=== PATIENT | female | born 1950 | race Caucasian/White ===

== ENCOUNTER 2020-07-05 16:17 | Inpatient (IN) | payer BC ==
[2020-07-05] MEDS ORDERED: SODIUM CHLORIDE 0.9% 500 ML INFUS.BAG IV ONE (17:28)
[2020-07-05] MEDS ORDERED: CEFTRIAXONE 2,000 MG in DEXTROSE 5%-WATER - 50 ML IVPB ONE (17:31)
[2020-07-05] MEDS ORDERED: VANCOMYCIN 1 GM in D5W (PRE-DOCKED) 1,000 MG/250 ML IVPB ONE (18:12)
[2020-07-05 18:29] LABS: BASO % 0.7 % (0-2.0); EOS % 0.3 % (0-4.5); HEMATOCRIT 33.5 % (32.4-45.2); HEMOGLOBIN 11.4 GM/dL (10.7-15.3); LYMPH % 8.5 % (8-40); MCH 29.2 pg (25.7-33.7); MEAN CELL VOLUME 85.9 fl (80-96); MEAN PLT VOLUME 7.9 fl (7.5-11.1); MONO % 4.1 % (3.8-10.2); NEUT % 86.4 % (42.8-82.8); PLATELET COUNT 294 K/MM3 (134-434); RBC 3.89 M/mm3 (3.60-5.2); RDW 14.3 % (11.6-15.6); WHITE BLOOD COUNT 13.3 K/mm3 (4.0-10.0)
[2020-07-05 18:45] LABS: INR 1.14 (0.83-1.09)
[2020-07-05 18:47] LABS: ACTIVATED PTT 27.2 SECONDS (25.2-36.5)
[2020-07-05 18:58] LABS: CALCIUM 8.6 mg/dL (8.5-10.1)
[2020-07-05 19:00] LABS: ALBUMIN 2.4 g/dl (3.4-5.0); BLOOD UREA NITROGEN 11.5 mg/dL (7-18); MAGNESIUM 1.2 mg/dL (1.8-2.4)
[2020-07-05 19:03] LABS: CREATININE 0.5 mg/dL (0.55-1.3)
[2020-07-05 19:05] LABS: BILIRUBIN,TOTAL 0.3 mg/dL (0.2-1); TOT PROT 6.6 g/dl (6.4-8.2)
[2020-07-05 19:37] LABS: ERYTHROCYTE SEDIMENTATION RATE 95 mm/hr (0-30)
[2020-07-05] MEDS ORDERED: MAGNESIUM OXIDE 400 MG TABLET (FP) PO ONE (19:52)
[2020-07-05] MEDS ORDERED: MAGNESIUM OXIDE 400 MG TABLET (FP) ONE (20:56)
[2020-07-06] MEDS ORDERED: ACETAMINOPHEN 1000 MG/100 ML VIAL (NON FORMULARY) IVPB ONE ×2 (02:32→19:15)
[2020-07-06] MEDS: INSULIN SLIDING SCALE (NOVOLOG) 1 VIAL SQ SCH ×5 (07:00→21:57)
[2020-07-06 09:07] LABS: BASO % 0.7 % (0-2.0); EOS % 0.9 % (0-4.5); HEMATOCRIT 31.2 % (32.4-45.2); HEMOGLOBIN 10.8 GM/dL (10.7-15.3); LYMPH % 10.3 % (8-40); MCH 29.3 pg (25.7-33.7); MCHC 34.6 g/dl (32.0-36.0); MEAN CELL VOLUME 84.7 fl (80-96); MEAN PLT VOLUME 7.7 fl (7.5-11.1); MONO % 4.2 % (3.8-10.2); NEUT % 83.9 % (42.8-82.8); PLATELET COUNT 272 K/MM3 (134-434); RBC 3.68 M/mm3 (3.60-5.2); WHITE BLOOD COUNT 10.2 K/mm3 (4.0-10.0)
[2020-07-06 09:48] LABS: CALCIUM 8.1 mg/dL (8.5-10.1)
[2020-07-06 09:50] LABS: ANISOCYTOSIS 0; BLOOD UREA NITROGEN 7.9 mg/dL (7-18); HELMET CELLS 0; HOWELL-JOLLY BODIES 0; MACROCYTOSIS 0; MAGNESIUM 1.4 mg/dL (1.8-2.4); OVALOCYTE 0; PLATELET ESTIMATE NORMAL; ROULEAU 0; SICKELED CELLS 0; TARGET CELLS 0; TEAR DROP CELLS 0; TOXIC GRANULATION 0
[2020-07-06 09:53] LABS: CREATININE 0.4 mg/dL (0.55-1.3)
[2020-07-06] MEDS ORDERED: VANCOMYCIN/WATER 1,250 MG/250 ML BAG IVPB SCH (10:00)
[2020-07-06] MEDS ORDERED: POTASSIUM CHLORIDE TABS 20 MEQ TABLET.ER (FP) PO ONE (10:26)
[2020-07-06] MEDS: amLODIPine BESYLATE 5 MG TABLET (FP) PO SCH (10:59)
[2020-07-06] MEDS: LISINOPRIL 20 MG TABLET PO SCH (10:59)
[2020-07-06] MEDS ORDERED: MAGNESIUM SULF 50% (8.12 MEQ/2 ML-1 GM VIAL) IVPB ONE (13:00)
[2020-07-06] MEDS ORDERED: VANCOMYCIN/WATER BAGS 1,250 MG/250 ML BAG IVPB SCH ×2 (14:00→22:00)
[2020-07-06] MEDS: VANCOMYCIN/WATER 1,250 MG/250 ML BAG IVPB SCH ×2 (14:57→14:58)
[2020-07-06] MEDS: CEFEPIME 2 GM in DEXTROSE 5%-WATER 2 GM/100 ML BAG IVPB SCH ×2 (15:18→17:38)
[2020-07-06] MEDS: CLINDAMYCIN 600MG PREMIX IVPB 600 MG/50 ML BAG IVPB SCH ×2 (16:04→17:38)
[2020-07-06] MEDS: metFORMIN HCL 500 MG TABLET (FP) PO SCH (16:17)
[2020-07-06] MEDS ORDERED: PT OWN MED DRAWER 7, Y5N ONE (18:45)
[2020-07-07] MEDS: VANCOMYCIN/WATER BAGS 1,250 MG/250 ML BAG IVPB SCH ×3 (00:41→23:41)
[2020-07-07] MEDS: CLINDAMYCIN 600MG PREMIX IVPB 600 MG/50 ML BAG IVPB SCH ×3 (02:25→17:00)
[2020-07-07] MEDS: CEFEPIME 2 GM in DEXTROSE 5%-WATER 2 GM/100 ML BAG IVPB SCH ×3 (02:26→18:05)
[2020-07-07] MEDS: metFORMIN HCL 500 MG TABLET (FP) PO SCH ×2 (06:30→16:59)
[2020-07-07] MEDS: INSULIN SLIDING SCALE (NOVOLOG) 1 VIAL SQ SCH ×4 (06:31→22:08)
[2020-07-07] MEDS ORDERED: INSULIN (NOVOLOG) ASPART 100 UNITS/ML 10ML VIAL ONE (06:37)
[2020-07-07] MEDS ORDERED: sitaGLIPtin PHOSPHATE 50 MG TABLET PO SCH (07:00)
[2020-07-07 07:40] LABS: BASO % 0.5 % (0-2.0); EOS % 0.8 % (0-4.5); HEMOGLOBIN 11.2 GM/dL (10.7-15.3); LYMPH % 6.9 % (8-40); MCH 29.1 pg (25.7-33.7); MEAN CELL VOLUME 85.6 fl (80-96); MEAN PLT VOLUME 7.5 fl (7.5-11.1); MONO % 3.5 % (3.8-10.2); NEUT % 88.3 % (42.8-82.8); PLATELET COUNT 290 K/MM3 (134-434); RBC 3.86 M/mm3 (3.60-5.2); RDW 13.9 % (11.6-15.6)
[2020-07-07 08:01] LABS: CALCIUM 7.6 mg/dL (8.5-10.1)
[2020-07-07 08:02] LABS: BLOOD UREA NITROGEN 7.7 mg/dL (7-18); MAGNESIUM 1.6 mg/dL (1.8-2.4)
[2020-07-07 08:05] LABS: CREATININE 0.4 mg/dL (0.55-1.3)
[2020-07-07] MEDS ORDERED: PT OWN MED DRAWER 7, Y5N ONE ×3 (09:54→23:38)
[2020-07-07] MEDS: amLODIPine BESYLATE 5 MG TABLET (FP) PO SCH (10:10)
[2020-07-07] MEDS: LISINOPRIL 20 MG TABLET PO SCH (10:10)
[2020-07-07] MEDS: OXYBUTYNIN CHLORIDE 5 MG TABLET PO SCH (10:10)
[2020-07-07] MEDS: oxyCODONE HCL 5 MG TABLET PO PRN ×2 (11:58→20:06)
[2020-07-07] MEDS: NYSTATIN 100,000 UNIT/GM TOPICAL CREAM 15 GM TUBE TP SCH ×2 (13:02→22:08)
[2020-07-07] MEDS ORDERED: MAGNESIUM SULF 50% (8.12 MEQ/2 ML-1 GM VIAL) IVPB ONE (14:15)
[2020-07-07] MEDS ORDERED: LIDOCAINE HCL 2% (20ML MULTI-DOSE VIAL) INF ONE (16:33)
[2020-07-07] MEDS: AMINO ACIDS/PROTEIN HYDROLYS 30 ML LIQUID.PKT PO SCH (17:00)
[2020-07-08] MEDS ORDERED: PT OWN MED DRAWER 7, Y5N ONE ×3 (01:57→18:20)
[2020-07-08] MEDS: CEFEPIME 2 GM in DEXTROSE 5%-WATER 2 GM/100 ML BAG IVPB SCH ×3 (02:00→18:24)
[2020-07-08] MEDS: CLINDAMYCIN 600MG PREMIX IVPB 600 MG/50 ML BAG IVPB SCH ×3 (03:04→17:55)
[2020-07-08] MEDS: metFORMIN HCL 500 MG TABLET (FP) PO SCH ×2 (07:04→18:16)
[2020-07-08] MEDS: INSULIN SLIDING SCALE (NOVOLOG) 1 VIAL SQ SCH ×4 (07:05→21:27)
[2020-07-08] MEDS: AMINO ACIDS/PROTEIN HYDROLYS 30 ML LIQUID.PKT PO SCH ×2 (08:09→17:55)
[2020-07-08 09:07] LABS: BASO % 0.6 % (0-2.0); EOS % 0.5 % (0-4.5); HEMATOCRIT 32.3 % (32.4-45.2); LYMPH % 6.5 % (8-40); MCH 29.3 pg (25.7-33.7); MCHC 34.2 g/dl (32.0-36.0); MEAN CELL VOLUME 85.7 fl (80-96); MEAN PLT VOLUME 7.7 fl (7.5-11.1); MONO % 4.2 % (3.8-10.2); NEUT % 88.2 % (42.8-82.8); PLATELET COUNT 322 K/MM3 (134-434); RBC 3.77 M/mm3 (3.60-5.2); RDW 14.2 % (11.6-15.6); WHITE BLOOD COUNT 14.4 K/mm3 (4.0-10.0)
[2020-07-08 09:34] LABS: CALCIUM 7.5 mg/dL (8.5-10.1)
[2020-07-08 09:35] LABS: BLOOD UREA NITROGEN 9.5 mg/dL (7-18)
[2020-07-08 09:37] LABS: CREATININE 0.5 mg/dL (0.55-1.3)
[2020-07-08 09:39] LABS: BILIRUBIN,TOTAL 0.6 mg/dL (0.2-1); TOT PROT 6.2 g/dl (6.4-8.2)
[2020-07-08] MEDS: oxyCODONE HCL 5 MG TABLET PO PRN (09:42)
[2020-07-08] MEDS: LISINOPRIL 20 MG TABLET PO SCH (09:42)
[2020-07-08] MEDS: OXYBUTYNIN CHLORIDE 5 MG TABLET PO SCH (09:43)
[2020-07-08] MEDS: NYSTATIN 100,000 UNIT/GM TOPICAL CREAM 15 GM TUBE TP SCH ×2 (09:43→21:27)
[2020-07-08] MEDS ORDERED: amLODIPine BESYLATE 10 MG TABLET (FP) PO SCH (10:00)
[2020-07-08] MEDS ORDERED: SODIUM HYPOCHLORITE 0.25%- 473 ML BULK BOTTLE TP SCH (10:00)
[2020-07-08] MEDS ORDERED: MULTIVITAMINS THER W-MINERALS COMBO TABLET (FP) PO SCH (10:00)
[2020-07-08] MEDS ORDERED: METOPROLOL TARTRATE 25 MG TABLET (FP) PO SCH (11:45)
[2020-07-08] MEDS: VANCOMYCIN/WATER BAGS 1,250 MG/250 ML BAG IVPB SCH (13:06)
[2020-07-08] MEDS ORDERED: PROMETHAZINE HCL 25 MG/1 ML VIAL IVPUSH PRN ×2 (16:01→17:21)
[2020-07-08] MEDS ORDERED: ONDANSETRON 4 MG/2 ML VIAL IVPUSH PRN ×2 (16:01→17:21)
[2020-07-08] MEDS ORDERED: LACTATED RINGERS SOLUTION 1,000 ML IV SCH (16:15)
[2020-07-08] MEDS ORDERED: PROPOFOL 20 ML ONE (16:15)
[2020-07-08] MEDS ORDERED: MIDAZOLAM HCL 2 MG/2 ML SINGLE DOSE VIAL ONE (16:15)
[2020-07-08] MEDS ORDERED: LIDOCAINE HCL 1%, 10 MG/ML (20ML VIAL) ONE (16:19)
[2020-07-08] MEDS ORDERED: LIDOCAINE HCL 1%, 10 MG/ML (20ML VIAL) INF ONE (16:30)
[2020-07-08] MEDS ORDERED: BACITRACIN 50,000 UNITS VIAL TP ONE (16:45)
[2020-07-08] MEDS ORDERED: LIDOCAINE HCL 2% (20ML MULTI-DOSE VIAL) INF ONE (17:21)
[2020-07-08] MEDS: LACTATED RINGERS SOLUTION 1,000 ML IV SCH (17:55)
[2020-07-08] MEDS ORDERED: INSULIN (NOVOLOG) ASPART 100 UNITS/ML 10ML VIAL SQ ONE (18:03)
[2020-07-08] MEDS: ACETAMINOPHEN 1000 MG/100 ML VIAL (NON FORMULARY) IVPB PRN (18:21)
[2020-07-08] MEDS ORDERED: INSULIN (NOVOLOG) ASPART 100 UNITS/ML 10ML VIAL ONE (21:21)
[2020-07-08] MEDS: METOPROLOL TARTRATE 25 MG TABLET (FP) PO SCH (21:22)
[2020-07-09] MEDS: VANCOMYCIN/WATER BAGS 1,250 MG/250 ML BAG IVPB SCH ×2 (00:48→12:18)
[2020-07-09] MEDS: CLINDAMYCIN 600MG PREMIX IVPB 600 MG/50 ML BAG IVPB SCH ×3 (01:48→17:40)
[2020-07-09] MEDS: CEFEPIME 2 GM in DEXTROSE 5%-WATER 2 GM/100 ML BAG IVPB SCH ×3 (03:05→17:40)
[2020-07-09] MEDS: metFORMIN HCL 500 MG TABLET (FP) PO SCH ×2 (06:06→17:42)
[2020-07-09] MEDS: INSULIN SLIDING SCALE (NOVOLOG) 1 VIAL SQ SCH ×4 (06:11→21:44)
[2020-07-09] MEDS: ACETAMINOPHEN 1000 MG/100 ML VIAL (NON FORMULARY) IVPB PRN (06:21)
[2020-07-09 09:24] LABS: HEMOGLOBIN 10.6 GM/dL (10.7-15.3); MCH 28.9 pg (25.7-33.7); MCHC 34.3 g/dl (32.0-36.0); MEAN CELL VOLUME 84.3 fl (80-96); MEAN PLT VOLUME 7.7 fl (7.5-11.1); PLATELET COUNT 349 K/MM3 (134-434); RBC 3.68 M/mm3 (3.60-5.2); RDW 14.1 % (11.6-15.6); WHITE BLOOD COUNT 13.2 K/mm3 (4.0-10.0)
[2020-07-09] MEDS ORDERED: ENOXAPARIN NA (PORCINE) 40 MG/0.4 ML DISP.SYRIN SQ SCH (10:00)
[2020-07-09] MEDS: AMINO ACIDS/PROTEIN HYDROLYS 30 ML LIQUID.PKT PO SCH ×2 (10:01→17:42)
[2020-07-09] MEDS: SODIUM HYPOCHLORITE 0.25%- 473 ML BULK BOTTLE TP SCH (10:02)
[2020-07-09] MEDS: OXYBUTYNIN CHLORIDE 5 MG TABLET PO SCH (10:03)
[2020-07-09] MEDS: ENOXAPARIN NA (PORCINE) 40 MG/0.4 ML DISP.SYRIN SQ SCH (10:03)
[2020-07-09] MEDS: METOPROLOL TARTRATE 25 MG TABLET (FP) PO SCH ×2 (10:03→21:45)
[2020-07-09 10:05] LABS: BLOOD UREA NITROGEN 9.1 mg/dL (7-18); CALCIUM 8.1 mg/dL (8.5-10.1)
[2020-07-09] MEDS: NYSTATIN 100,000 UNIT/GM TOPICAL CREAM 15 GM TUBE TP SCH ×2 (10:05→21:49)
[2020-07-09] MEDS: LISINOPRIL 20 MG TABLET PO SCH (10:06)
[2020-07-09] MEDS: amLODIPine BESYLATE 10 MG TABLET (FP) PO SCH (10:06)
[2020-07-09] MEDS: MULTIVITAMINS THER W-MINERALS COMBO TABLET (FP) PO SCH (10:06)
[2020-07-09 10:09] LABS: CREATININE 0.4 mg/dL (0.55-1.3)
[2020-07-09] MEDS ORDERED: POTASSIUM CHLORIDE TABS 20 MEQ TABLET.ER (FP) PO ONE (10:38)
[2020-07-09] MEDS ORDERED: INSULIN (NOVOLOG) ASPART 100 UNITS/ML 10ML VIAL ONE ×2 (11:03→21:32)
[2020-07-09] MEDS ORDERED: PT OWN MED DRAWER 7, Y5N ONE (17:38)
[2020-07-09] MEDS: LACTATED RINGERS SOLUTION 1,000 ML IV SCH (17:49)
[2020-07-09] MEDS: oxyCODONE HCL 5 MG TABLET PO PRN (17:54)
[2020-07-09] MEDS ORDERED: INSULIN (LEVEMIR) 100 UNITS/ML UNITS SQ SCH (22:00)
[2020-07-10] MEDS: LACTATED RINGERS SOLUTION 1,000 ML IV SCH ×2 (00:24→17:42)
[2020-07-10] MEDS: VANCOMYCIN/WATER BAGS 1,250 MG/250 ML BAG IVPB SCH ×3 (00:35→23:32)
[2020-07-10] MEDS: CEFEPIME 2 GM in DEXTROSE 5%-WATER 2 GM/100 ML BAG IVPB SCH ×3 (01:44→18:45)
[2020-07-10] MEDS: CLINDAMYCIN 600MG PREMIX IVPB 600 MG/50 ML BAG IVPB SCH ×3 (03:18→17:55)
[2020-07-10] MEDS: metFORMIN HCL 500 MG TABLET (FP) PO SCH ×2 (06:03→17:07)
[2020-07-10] MEDS: INSULIN SLIDING SCALE (NOVOLOG) 1 VIAL SQ SCH ×4 (06:11→22:13)
[2020-07-10] MEDS: AMINO ACIDS/PROTEIN HYDROLYS 30 ML LIQUID.PKT PO SCH ×2 (08:24→17:07)
[2020-07-10 09:55] LABS: HEMATOCRIT 31.6 % (32.4-45.2); HEMOGLOBIN 10.6 GM/dL (10.7-15.3); MCH 28.8 pg (25.7-33.7); MCHC 33.6 g/dl (32.0-36.0); MEAN CELL VOLUME 85.7 fl (80-96); MEAN PLT VOLUME 7.9 fl (7.5-11.1); PLATELET COUNT 380 K/MM3 (134-434); RBC 3.69 M/mm3 (3.60-5.2); RDW 14.2 % (11.6-15.6); WHITE BLOOD COUNT 12.4 K/mm3 (4.0-10.0)
[2020-07-10 10:08] LABS: BLOOD UREA NITROGEN 12.6 mg/dL (7-18)
[2020-07-10 10:12] LABS: CREATININE 0.5 mg/dL (0.55-1.3)
[2020-07-10] MEDS ORDERED: PT OWN MED DRAWER 7, Y5N ONE ×3 (10:15→23:30)
[2020-07-10] MEDS: ENOXAPARIN NA (PORCINE) 40 MG/0.4 ML DISP.SYRIN SQ SCH (10:19)
[2020-07-10] MEDS: SODIUM HYPOCHLORITE 0.25%- 473 ML BULK BOTTLE TP SCH (10:22)
[2020-07-10] MEDS: OXYBUTYNIN CHLORIDE 5 MG TABLET PO SCH (10:23)
[2020-07-10] MEDS: METOPROLOL TARTRATE 25 MG TABLET (FP) PO SCH ×2 (10:23→22:08)
[2020-07-10] MEDS: LISINOPRIL 20 MG TABLET PO SCH (10:23)
[2020-07-10] MEDS: amLODIPine BESYLATE 10 MG TABLET (FP) PO SCH (10:23)
[2020-07-10] MEDS: MULTIVITAMINS THER W-MINERALS COMBO TABLET (FP) PO SCH (10:23)
[2020-07-10] MEDS: NYSTATIN 100,000 UNIT/GM TOPICAL CREAM 15 GM TUBE TP SCH ×2 (10:24→22:09)
[2020-07-10] MEDS: oxyCODONE HCL 5 MG TABLET PO PRN (22:08)
[2020-07-10] MEDS: INSULIN (LEVEMIR) 100 UNITS/ML UNITS SQ SCH (22:12)
[2020-07-11] MEDS ORDERED: PT OWN MED DRAWER 7, Y5N ONE ×5 (01:05→17:03)
[2020-07-11] MEDS ORDERED: ACETAMINOPHEN 1000 MG/100 ML VIAL (NON FORMULARY) IVPB ONE (01:25)
[2020-07-11 02:30] LABS: BASO % 0.7 % (0-2.0); EOS % 1.1 % (0-4.5); HEMATOCRIT 33.3 % (32.4-45.2); HEMOGLOBIN 11.1 GM/dL (10.7-15.3); LYMPH % 8.7 % (8-40); MCH 28.6 pg (25.7-33.7); MCHC 33.5 g/dl (32.0-36.0); MEAN CELL VOLUME 85.4 fl (80-96); MEAN PLT VOLUME 8.1 fl (7.5-11.1); MONO % 5.7 % (3.8-10.2); NEUT % 83.8 % (42.8-82.8); PLATELET COUNT 400 K/MM3 (134-434); RDW 14.3 % (11.6-15.6); WHITE BLOOD COUNT 12.9 K/mm3 (4.0-10.0)
[2020-07-11 02:32] LABS: EPI CELLS 23 /uL (0-25.1); HYALINE CASTS 1 /uL (0-3.1); URINE APPEARANCE CLOUDY; URINE BACTERIA 115 /uL (0-1359); URINE BILIRUBIN NEGATIVE (NEGATIVE); URINE COLOR YELLOW; URINE GLUCOSE (UA) 3+ (NEGATIVE); URINE KETONE TRACE (NEGATIVE); URINE LEUK ESTERASE 2+ (NEGATIVE); URINE NITRITE NEGATIVE (NEGATIVE); URINE PROTEIN 1+ (NEGATIVE); URINE UROBILINOGEN 0.2 mg/dL (0.2-1.0); URINE WBC 398 /uL (0-25.8)
[2020-07-11] MEDS: CEFEPIME 2 GM in DEXTROSE 5%-WATER 2 GM/100 ML BAG IVPB SCH ×2 (02:34→09:50)
[2020-07-11 02:54] LABS: CALCIUM 8.4 mg/dL (8.5-10.1)
[2020-07-11 02:57] LABS: CREATININE 0.5 mg/dL (0.55-1.3)
[2020-07-11] MEDS: INSULIN SLIDING SCALE (NOVOLOG) 1 VIAL SQ SCH ×4 (06:23→21:29)
[2020-07-11] MEDS: metFORMIN HCL 500 MG TABLET (FP) PO SCH ×2 (06:23→17:05)
[2020-07-11] MEDS: oxyCODONE HCL 5 MG TABLET PO PRN (06:24)
[2020-07-11] MEDS: AMINO ACIDS/PROTEIN HYDROLYS 30 ML LIQUID.PKT PO SCH ×2 (08:58→17:05)
[2020-07-11] MEDS: LISINOPRIL 20 MG TABLET PO SCH (09:51)
[2020-07-11] MEDS: amLODIPine BESYLATE 10 MG TABLET (FP) PO SCH (09:51)
[2020-07-11] MEDS: ENOXAPARIN NA (PORCINE) 40 MG/0.4 ML DISP.SYRIN SQ SCH (09:51)
[2020-07-11] MEDS: SODIUM HYPOCHLORITE 0.25%- 473 ML BULK BOTTLE TP SCH (09:52)
[2020-07-11] MEDS: METOPROLOL TARTRATE 25 MG TABLET (FP) PO SCH ×2 (09:52→21:27)
[2020-07-11] MEDS: MULTIVITAMINS THER W-MINERALS COMBO TABLET (FP) PO SCH (09:53)
[2020-07-11] MEDS: NYSTATIN 100,000 UNIT/GM TOPICAL CREAM 15 GM TUBE TP SCH ×2 (09:53→21:30)
[2020-07-11] MEDS ORDERED: INSULIN (NOVOLOG) ASPART 100 UNITS/ML 10ML VIAL ONE (09:59)
[2020-07-11] MEDS: OXYBUTYNIN CHLORIDE 5 MG TABLET PO SCH (10:00)
[2020-07-11] MEDS: VANCOMYCIN/WATER BAGS 1,250 MG/250 ML BAG IVPB SCH (11:54)
[2020-07-11] MEDS: CEFAZOLIN 2 GM/D5W 2 GM/50 ML ML IVPB SCH (17:53)
[2020-07-11] MEDS ORDERED: ACETAMINOPHEN 325 MG TABLET (FP) PO PRN (18:28)
[2020-07-11] MEDS: INSULIN (LEVEMIR) 100 UNITS/ML UNITS SQ SCH (21:28)
[2020-07-12] MEDS: CEFAZOLIN 2 GM/D5W 2 GM/50 ML ML IVPB SCH ×3 (01:32→17:16)
[2020-07-12] MEDS: metFORMIN HCL 500 MG TABLET (FP) PO SCH ×2 (06:50→17:16)
[2020-07-12] MEDS: INSULIN SLIDING SCALE (NOVOLOG) 1 VIAL SQ SCH ×4 (06:50→21:54)
[2020-07-12] MEDS: AMINO ACIDS/PROTEIN HYDROLYS 30 ML LIQUID.PKT PO SCH ×2 (09:02→17:16)
[2020-07-12] MEDS ORDERED: PT OWN MED DRAWER 7, Y5N ONE (10:32)
[2020-07-12] MEDS: OXYBUTYNIN CHLORIDE 5 MG TABLET PO SCH (10:41)
[2020-07-12] MEDS: amLODIPine BESYLATE 10 MG TABLET (FP) PO SCH (10:41)
[2020-07-12] MEDS: METOPROLOL TARTRATE 25 MG TABLET (FP) PO SCH ×2 (10:41→21:51)
[2020-07-12] MEDS: NYSTATIN 100,000 UNIT/GM TOPICAL CREAM 15 GM TUBE TP SCH ×2 (10:42→21:51)
[2020-07-12] MEDS: LISINOPRIL 20 MG TABLET PO SCH (10:42)
[2020-07-12] MEDS: ENOXAPARIN NA (PORCINE) 40 MG/0.4 ML DISP.SYRIN SQ SCH (10:42)
[2020-07-12] MEDS: MULTIVITAMINS THER W-MINERALS COMBO TABLET (FP) PO SCH (10:42)
[2020-07-12 12:50] VITALS: BMI 31.8
[2020-07-12] MEDS: SODIUM HYPOCHLORITE 0.25%- 473 ML BULK BOTTLE TP SCH (14:17)
[2020-07-12] MEDS: INSULIN (LEVEMIR) 100 UNITS/ML UNITS SQ SCH (21:50)
[2020-07-12] MEDS: oxyCODONE HCL 5 MG TABLET PO PRN (22:17)
[2020-07-13] MEDS: CEFAZOLIN 2 GM/D5W 2 GM/50 ML ML IVPB SCH ×3 (02:25→17:14)
[2020-07-13] MEDS: INSULIN SLIDING SCALE (NOVOLOG) 1 VIAL SQ SCH ×4 (06:03→22:34)
[2020-07-13] MEDS: metFORMIN HCL 500 MG TABLET (FP) PO SCH ×2 (06:03→17:14)
[2020-07-13] MEDS: oxyCODONE HCL 5 MG TABLET PO PRN (10:00)
[2020-07-13] MEDS: AMINO ACIDS/PROTEIN HYDROLYS 30 ML LIQUID.PKT PO SCH ×2 (10:00→17:14)
[2020-07-13] MEDS: amLODIPine BESYLATE 10 MG TABLET (FP) PO SCH (10:01)
[2020-07-13] MEDS: LISINOPRIL 20 MG TABLET PO SCH (10:01)
[2020-07-13] MEDS: SODIUM HYPOCHLORITE 0.25%- 473 ML BULK BOTTLE TP SCH (10:01)
[2020-07-13] MEDS: MULTIVITAMINS THER W-MINERALS COMBO TABLET (FP) PO SCH (10:02)
[2020-07-13] MEDS: METOPROLOL TARTRATE 25 MG TABLET (FP) PO SCH ×2 (10:02→22:34)
[2020-07-13] MEDS: OXYBUTYNIN CHLORIDE 5 MG TABLET PO SCH (10:04)
[2020-07-13] MEDS ORDERED: PT OWN MED DRAWER 7, Y5N ONE (10:04)
[2020-07-13] MEDS: ENOXAPARIN NA (PORCINE) 40 MG/0.4 ML DISP.SYRIN SQ SCH (10:08)
[2020-07-13] MEDS: NYSTATIN 100,000 UNIT/GM TOPICAL CREAM 15 GM TUBE TP SCH ×2 (10:18→22:34)
[2020-07-13] MEDS ORDERED: INSULIN (NOVOLOG) ASPART 100 UNITS/ML 10ML VIAL ONE ×2 (11:44→17:08)
[2020-07-13] MEDS: INSULIN (LEVEMIR) 100 UNITS/ML UNITS SQ SCH (22:33)
[2020-07-14] MEDS: CEFAZOLIN 2 GM/D5W 2 GM/50 ML ML IVPB SCH ×3 (02:25→17:52)
[2020-07-14] MEDS: metFORMIN HCL 500 MG TABLET (FP) PO SCH ×2 (06:13→17:52)
[2020-07-14] MEDS: INSULIN SLIDING SCALE (NOVOLOG) 1 VIAL SQ SCH ×4 (06:13→22:42)
[2020-07-14] MEDS: AMINO ACIDS/PROTEIN HYDROLYS 30 ML LIQUID.PKT PO SCH ×2 (08:39→17:52)
[2020-07-14] MEDS: LISINOPRIL 20 MG TABLET PO SCH (11:30)
[2020-07-14] MEDS: amLODIPine BESYLATE 10 MG TABLET (FP) PO SCH (11:32)
[2020-07-14] MEDS: METOPROLOL TARTRATE 25 MG TABLET (FP) PO SCH ×2 (11:32→22:40)
[2020-07-14] MEDS: MULTIVITAMINS THER W-MINERALS COMBO TABLET (FP) PO SCH (11:32)
[2020-07-14] MEDS: NYSTATIN 100,000 UNIT/GM TOPICAL CREAM 15 GM TUBE TP SCH ×2 (11:34→22:42)
[2020-07-14] MEDS ORDERED: PT OWN MED DRAWER 7, Y5N ONE ×2 (11:37→11:40)
[2020-07-14] MEDS: OXYBUTYNIN CHLORIDE 5 MG TABLET PO SCH (11:39)
[2020-07-14] MEDS: SODIUM HYPOCHLORITE 0.25%- 473 ML BULK BOTTLE TP SCH (11:55)
[2020-07-14] MEDS ORDERED: INSULIN (NOVOLOG) ASPART 100 UNITS/ML 10ML VIAL ONE ×4 (12:11→16:58)
[2020-07-14] MEDS: ENOXAPARIN NA (PORCINE) 40 MG/0.4 ML DISP.SYRIN SQ SCH (13:51)
[2020-07-14] MEDS: metroNIDAZOLE 250 MG TABLET PO SCH (22:41)
[2020-07-14] MEDS: INSULIN (LEVEMIR) 100 UNITS/ML UNITS SQ SCH (22:41)
[2020-07-15] MEDS: CEFAZOLIN 2 GM/D5W 2 GM/50 ML ML IVPB SCH ×3 (02:00→17:22)
[2020-07-15] MEDS: metroNIDAZOLE 250 MG TABLET PO SCH ×3 (06:26→21:25)
[2020-07-15] MEDS: INSULIN SLIDING SCALE (NOVOLOG) 1 VIAL SQ SCH ×4 (06:27→21:31)
[2020-07-15] MEDS: metFORMIN HCL 500 MG TABLET (FP) PO SCH ×2 (06:27→17:21)
[2020-07-15 08:52] LABS: HEMATOCRIT 30.2 % (32.4-45.2); HEMOGLOBIN 10.4 GM/dL (10.7-15.3); MCH 29.3 pg (25.7-33.7); MCHC 34.5 g/dl (32.0-36.0); MEAN CELL VOLUME 85.1 fl (80-96); MEAN PLT VOLUME 7.5 fl (7.5-11.1); PLATELET COUNT 438 K/MM3 (134-434); RBC 3.54 M/mm3 (3.60-5.2); RDW 14.4 % (11.6-15.6); WHITE BLOOD COUNT 8.3 K/mm3 (4.0-10.0)
[2020-07-15] MEDS: ENOXAPARIN NA (PORCINE) 40 MG/0.4 ML DISP.SYRIN SQ SCH (09:23)
[2020-07-15] MEDS: METOPROLOL TARTRATE 25 MG TABLET (FP) PO SCH ×2 (09:24→21:25)
[2020-07-15] MEDS: AMINO ACIDS/PROTEIN HYDROLYS 30 ML LIQUID.PKT PO SCH ×2 (09:24→17:22)
[2020-07-15] MEDS: LISINOPRIL 20 MG TABLET PO SCH (09:24)
[2020-07-15] MEDS: amLODIPine BESYLATE 10 MG TABLET (FP) PO SCH (09:24)
[2020-07-15] MEDS: LACTOBACILLUS ACIDOPHILUS 1 TABLET PO SCH (09:24)
[2020-07-15 09:25] LABS: CALCIUM 8.4 mg/dL (8.5-10.1)
[2020-07-15] MEDS: SODIUM HYPOCHLORITE 0.25%- 473 ML BULK BOTTLE TP SCH (09:25)
[2020-07-15] MEDS: NYSTATIN 100,000 UNIT/GM TOPICAL CREAM 15 GM TUBE TP SCH ×2 (09:25→21:28)
[2020-07-15 09:26] LABS: BLOOD UREA NITROGEN 10.3 mg/dL (7-18)
[2020-07-15] MEDS: OXYBUTYNIN CHLORIDE 5 MG TABLET PO SCH (09:28)
[2020-07-15] MEDS ORDERED: PT OWN MED DRAWER 7, Y5N ONE (09:28)
[2020-07-15 09:29] LABS: CREATININE 0.3 mg/dL (0.55-1.3)
[2020-07-15] MEDS: MULTIVITAMINS THER W-MINERALS COMBO TABLET (FP) PO SCH ×2 (09:43→09:45)
[2020-07-15] MEDS ORDERED: INSULIN (NOVOLOG) ASPART 100 UNITS/ML 10ML VIAL ONE ×2 (12:02→12:14)
[2020-07-15 13:42] LABS: ERYTHROCYTE SEDIMENTATION RATE 106 mm/hr (0-30)
[2020-07-15] MEDS: INSULIN (LEVEMIR) 100 UNITS/ML UNITS SQ SCH (21:27)
[2020-07-16] MEDS: CEFAZOLIN 2 GM/D5W 2 GM/50 ML ML IVPB SCH ×3 (01:20→17:23)
[2020-07-16] MEDS: metFORMIN HCL 500 MG TABLET (FP) PO SCH ×2 (06:14→16:24)
[2020-07-16] MEDS: metroNIDAZOLE 250 MG TABLET PO SCH ×3 (06:14→21:24)
[2020-07-16] MEDS: INSULIN SLIDING SCALE (NOVOLOG) 1 VIAL SQ SCH ×4 (06:17→21:25)
[2020-07-16] MEDS: METOPROLOL TARTRATE 25 MG TABLET (FP) PO SCH ×2 (09:54→21:25)
[2020-07-16] MEDS: MULTIVITAMINS THER W-MINERALS COMBO TABLET (FP) PO SCH (09:54)
[2020-07-16] MEDS: LISINOPRIL 20 MG TABLET PO SCH (09:55)
[2020-07-16] MEDS: amLODIPine BESYLATE 10 MG TABLET (FP) PO SCH (09:55)
[2020-07-16] MEDS: AMINO ACIDS/PROTEIN HYDROLYS 30 ML LIQUID.PKT PO SCH ×2 (09:55→17:23)
[2020-07-16] MEDS: LACTOBACILLUS ACIDOPHILUS 1 TABLET PO SCH (09:55)
[2020-07-16] MEDS: OXYBUTYNIN CHLORIDE 5 MG TABLET PO SCH (09:55)
[2020-07-16] MEDS: SODIUM HYPOCHLORITE 0.25%- 473 ML BULK BOTTLE TP SCH (09:56)
[2020-07-16] MEDS: NYSTATIN 100,000 UNIT/GM TOPICAL CREAM 15 GM TUBE TP SCH ×2 (09:57→21:25)
[2020-07-16] MEDS ORDERED: INSULIN (LEVEMIR) 100 UNITS/ML UNITS SQ SCH (12:58)
[2020-07-17] MEDS: CEFAZOLIN 2 GM/D5W 2 GM/50 ML ML IVPB SCH ×3 (01:06→17:15)
[2020-07-17] MEDS: metroNIDAZOLE 250 MG TABLET PO SCH ×3 (06:37→21:11)
[2020-07-17] MEDS: metFORMIN HCL 500 MG TABLET (FP) PO SCH ×2 (06:37→17:15)
[2020-07-17] MEDS: INSULIN SLIDING SCALE (NOVOLOG) 1 VIAL SQ SCH ×4 (06:38→21:12)
[2020-07-17] MEDS: LACTOBACILLUS ACIDOPHILUS 1 TABLET PO SCH (09:58)
[2020-07-17] MEDS: amLODIPine BESYLATE 10 MG TABLET (FP) PO SCH (09:59)
[2020-07-17] MEDS: LISINOPRIL 20 MG TABLET PO SCH (09:59)
[2020-07-17] MEDS: OXYBUTYNIN CHLORIDE 5 MG TABLET PO SCH (09:59)
[2020-07-17] MEDS: AMINO ACIDS/PROTEIN HYDROLYS 30 ML LIQUID.PKT PO SCH ×2 (09:59→17:15)
[2020-07-17] MEDS: METOPROLOL TARTRATE 25 MG TABLET (FP) PO SCH ×2 (09:59→21:11)
[2020-07-17] MEDS: SODIUM HYPOCHLORITE 0.25%- 473 ML BULK BOTTLE TP SCH (10:08)
[2020-07-17] MEDS: MULTIVITAMINS THER W-MINERALS COMBO TABLET (FP) PO SCH (10:08)
[2020-07-17] MEDS: NYSTATIN 100,000 UNIT/GM TOPICAL CREAM 15 GM TUBE TP SCH ×2 (10:08→21:13)
[2020-07-17] MEDS ORDERED: INSULIN (LEVEMIR) 100 UNITS/ML UNITS SQ SCH (11:34)
[2020-07-18] MEDS: CEFAZOLIN 2 GM/D5W 2 GM/50 ML ML IVPB SCH ×3 (01:29→17:05)
[2020-07-18] MEDS: metFORMIN HCL 500 MG TABLET (FP) PO SCH ×2 (06:34→17:04)
[2020-07-18] MEDS: INSULIN SLIDING SCALE (NOVOLOG) 1 VIAL SQ SCH ×4 (06:34→21:26)
[2020-07-18] MEDS: metroNIDAZOLE 250 MG TABLET PO SCH ×3 (06:34→21:29)
[2020-07-18] MEDS: AMINO ACIDS/PROTEIN HYDROLYS 30 ML LIQUID.PKT PO SCH ×2 (10:52→17:04)
[2020-07-18] MEDS: LACTOBACILLUS ACIDOPHILUS 1 TABLET PO SCH (10:52)
[2020-07-18] MEDS: METOPROLOL TARTRATE 25 MG TABLET (FP) PO SCH ×2 (10:52→21:29)
[2020-07-18] MEDS: amLODIPine BESYLATE 10 MG TABLET (FP) PO SCH (10:52)
[2020-07-18] MEDS: NYSTATIN 100,000 UNIT/GM TOPICAL CREAM 15 GM TUBE TP SCH ×2 (10:53→21:30)
[2020-07-18] MEDS: SODIUM HYPOCHLORITE 0.25%- 473 ML BULK BOTTLE TP SCH (10:53)
[2020-07-18] MEDS: LISINOPRIL 20 MG TABLET PO SCH (10:53)
[2020-07-18] MEDS: SOLIFENACIN SUCCINATE 5 MG TAB PO SCH (10:54)
[2020-07-18] MEDS: MULTIVITAMINS THER W-MINERALS COMBO TABLET (FP) PO SCH (10:54)
[2020-07-18] MEDS ORDERED: INSULIN (NOVOLOG) ASPART 100 UNITS/ML 10ML VIAL ONE (11:09)
[2020-07-18] MEDS: INSULIN (LEVEMIR) 100 UNITS/ML UNITS SQ SCH (21:25)
[2020-07-19] MEDS: CEFAZOLIN 2 GM/D5W 2 GM/50 ML ML IVPB SCH ×3 (03:10→17:46)
[2020-07-19] MEDS: INSULIN SLIDING SCALE (NOVOLOG) 1 VIAL SQ SCH ×4 (06:20→21:53)
[2020-07-19] MEDS: metroNIDAZOLE 250 MG TABLET PO SCH ×3 (06:20→21:52)
[2020-07-19] MEDS: metFORMIN HCL 500 MG TABLET (FP) PO SCH ×2 (06:20→16:48)
[2020-07-19] MEDS: METOPROLOL TARTRATE 25 MG TABLET (FP) PO SCH ×2 (09:31→21:52)
[2020-07-19] MEDS: LACTOBACILLUS ACIDOPHILUS 1 TABLET PO SCH (09:32)
[2020-07-19] MEDS: LISINOPRIL 20 MG TABLET PO SCH (09:32)
[2020-07-19] MEDS: amLODIPine BESYLATE 10 MG TABLET (FP) PO SCH (09:32)
[2020-07-19] MEDS: AMINO ACIDS/PROTEIN HYDROLYS 30 ML LIQUID.PKT PO SCH ×2 (09:32→17:20)
[2020-07-19] MEDS: MULTIVITAMINS THER W-MINERALS COMBO TABLET (FP) PO SCH (09:33)
[2020-07-19] MEDS: SOLIFENACIN SUCCINATE 5 MG TAB PO SCH (09:33)
[2020-07-19] MEDS: NYSTATIN 100,000 UNIT/GM TOPICAL CREAM 15 GM TUBE TP SCH ×2 (09:47→21:55)
[2020-07-19] MEDS: SODIUM HYPOCHLORITE 0.25%- 473 ML BULK BOTTLE TP SCH (11:58)
[2020-07-19 15:04] LABS: HEMATOCRIT 33.3 % (32.4-45.2); HEMOGLOBIN 11.2 GM/dL (10.7-15.3); MCHC 33.6 g/dl (32.0-36.0); MEAN CELL VOLUME 86.2 fl (80-96); MEAN PLT VOLUME 7.5 fl (7.5-11.1); PLATELET COUNT 492 K/MM3 (134-434); RBC 3.86 M/mm3 (3.60-5.2); RDW 15.2 % (11.6-15.6); WHITE BLOOD COUNT 9.9 K/mm3 (4.0-10.0)
[2020-07-19 15:23] LABS: CALCIUM 8.7 mg/dL (8.5-10.1)
[2020-07-19 15:24] LABS: ALBUMIN 2.1 g/dl (3.4-5.0); BLOOD UREA NITROGEN 14.7 mg/dL (7-18)
[2020-07-19 15:27] LABS: CREATININE 0.5 mg/dL (0.55-1.3)
[2020-07-19 15:28] LABS: BILIRUBIN,TOTAL 0.2 mg/dL (0.2-1); TOT PROT 6.1 g/dl (6.4-8.2)
[2020-07-19] MEDS: INSULIN (LEVEMIR) 100 UNITS/ML UNITS SQ SCH (21:52)
[2020-07-20] MEDS: CEFAZOLIN 2 GM/D5W 2 GM/50 ML ML IVPB SCH ×3 (02:05→17:41)
[2020-07-20] MEDS: INSULIN SLIDING SCALE (NOVOLOG) 1 VIAL SQ SCH ×4 (06:20→21:18)
[2020-07-20] MEDS: metFORMIN HCL 500 MG TABLET (FP) PO SCH ×2 (06:21→16:32)
[2020-07-20] MEDS: metroNIDAZOLE 250 MG TABLET PO SCH ×3 (06:21→21:17)
[2020-07-20 08:29] LABS: HEMATOCRIT 33.6 % (32.4-45.2); HEMOGLOBIN 11.3 GM/dL (10.7-15.3); MCH 28.8 pg (25.7-33.7); MCHC 33.5 g/dl (32.0-36.0); MEAN CELL VOLUME 85.9 fl (80-96); MEAN PLT VOLUME 7.1 fl (7.5-11.1); PLATELET COUNT 448 K/MM3 (134-434); RBC 3.91 M/mm3 (3.60-5.2); RDW 15.3 % (11.6-15.6); WHITE BLOOD COUNT 8.1 K/mm3 (4.0-10.0)
[2020-07-20 08:47] LABS: ALBUMIN 2.2 g/dl (3.4-5.0); CALCIUM 8.9 mg/dL (8.5-10.1)
[2020-07-20 08:51] LABS: CREATININE 0.3 mg/dL (0.55-1.3)
[2020-07-20 08:52] LABS: BILIRUBIN,TOTAL 0.3 mg/dL (0.2-1); TOT PROT 6.2 g/dl (6.4-8.2)
[2020-07-20] MEDS: amLODIPine BESYLATE 10 MG TABLET (FP) PO SCH (09:09)
[2020-07-20] MEDS: MULTIVITAMINS THER W-MINERALS COMBO TABLET (FP) PO SCH (09:09)
[2020-07-20] MEDS: METOPROLOL TARTRATE 25 MG TABLET (FP) PO SCH ×2 (09:09→21:17)
[2020-07-20] MEDS: LACTOBACILLUS ACIDOPHILUS 1 TABLET PO SCH (09:10)
[2020-07-20] MEDS: LISINOPRIL 20 MG TABLET PO SCH (09:10)
[2020-07-20] MEDS: SOLIFENACIN SUCCINATE 5 MG TAB PO SCH (09:10)
[2020-07-20] MEDS: AMINO ACIDS/PROTEIN HYDROLYS 30 ML LIQUID.PKT PO SCH ×2 (09:10→16:32)
[2020-07-20] MEDS: NYSTATIN 100,000 UNIT/GM TOPICAL CREAM 15 GM TUBE TP SCH ×2 (09:11→21:19)
[2020-07-20] MEDS: SODIUM HYPOCHLORITE 0.25%- 473 ML BULK BOTTLE TP SCH (09:12)
[2020-07-20] MEDS: INSULIN (LEVEMIR) 100 UNITS/ML UNITS SQ SCH (21:20)
[2020-07-21] MEDS: CEFAZOLIN 2 GM/D5W 2 GM/50 ML ML IVPB SCH ×3 (02:51→17:53)
[2020-07-21] MEDS: INSULIN SLIDING SCALE (NOVOLOG) 1 VIAL SQ SCH ×4 (06:05→21:52)
[2020-07-21] MEDS: metFORMIN HCL 500 MG TABLET (FP) PO SCH ×2 (06:05→16:36)
[2020-07-21] MEDS: metroNIDAZOLE 250 MG TABLET PO SCH ×3 (06:05→21:44)
[2020-07-21] MEDS: SODIUM CHLORIDE 0.45% 1,000 ML IV SCH ×3 (06:32→16:37)
[2020-07-21] MEDS: AMINO ACIDS/PROTEIN HYDROLYS 30 ML LIQUID.PKT PO SCH ×2 (08:42→16:59)
[2020-07-21] MEDS: amLODIPine BESYLATE 10 MG TABLET (FP) PO SCH (09:24)
[2020-07-21] MEDS: METOPROLOL TARTRATE 25 MG TABLET (FP) PO SCH ×2 (09:24→21:44)
[2020-07-21] MEDS: LISINOPRIL 20 MG TABLET PO SCH (09:25)
[2020-07-21] MEDS: SOLIFENACIN SUCCINATE 5 MG TAB PO SCH (09:26)
[2020-07-21] MEDS: LACTOBACILLUS ACIDOPHILUS 1 TABLET PO SCH (09:42)
[2020-07-21] MEDS: MULTIVITAMINS THER W-MINERALS COMBO TABLET (FP) PO SCH (09:43)
[2020-07-21] MEDS: NYSTATIN 100,000 UNIT/GM TOPICAL CREAM 15 GM TUBE TP SCH ×2 (09:43→21:45)
[2020-07-21] MEDS: SODIUM HYPOCHLORITE 0.25%- 473 ML BULK BOTTLE TP SCH (09:43)
[2020-07-21] MEDS ORDERED: HEPARIN NA (PORCINE) 5,000 UNITS/ML 1ML VIAL ONE (12:09)
[2020-07-21] MEDS ORDERED: LIDOCAINE HCL 1%, 10 MG/ML (20ML VIAL) ONE (12:09)
[2020-07-21] MEDS ORDERED: MIDAZOLAM HCL 2 MG/2 ML SINGLE DOSE VIAL ONE (12:12)
[2020-07-21] MEDS ORDERED: PROPOFOL 20 ML ONE ×4 (12:12→13:58)
[2020-07-21] MEDS ORDERED: LIDOCAINE HCL 1%, 10 MG/ML (20ML VIAL) INF ONE (13:03)
[2020-07-21] MEDS ORDERED: PROMETHAZINE HCL 25 MG/1 ML VIAL IVPUSH PRN (15:10)
[2020-07-21] MEDS ORDERED: ONDANSETRON 4 MG/2 ML VIAL IVPUSH PRN ×2 (15:10→17:03)
[2020-07-21] MEDS ORDERED: ACETAMINOPHEN 325 MG TABLET (FP) ONE (15:25)
[2020-07-21] MEDS: ACETAMINOPHEN 325 MG TABLET (FP) PO PRN (15:30)
[2020-07-21] MEDS: CLOPIDOGREL BISULFATE 75 MG TABLET (FP) PO SCH (16:36)
[2020-07-21] MEDS: LACTATED RINGERS SOLUTION 1,000 ML IV SCH (18:06)
[2020-07-21] MEDS: oxyCODONE HCL 5 MG TABLET PO PRN ×2 (18:19→22:10)
[2020-07-21] MEDS ORDERED: INSULIN (LEVEMIR) 100 UNITS/ML UNITS SQ SCH (22:00)
[2020-07-22] MEDS: CEFAZOLIN 2 GM/D5W 2 GM/50 ML ML IVPB SCH ×3 (01:02→17:03)
[2020-07-22] MEDS: oxyCODONE HCL 5 MG TABLET PO PRN ×3 (02:08→11:48)
[2020-07-22] MEDS: metroNIDAZOLE 250 MG TABLET PO SCH (05:52)
[2020-07-22] MEDS: metFORMIN HCL 500 MG TABLET (FP) PO SCH (06:02)
[2020-07-22] MEDS: INSULIN SLIDING SCALE (NOVOLOG) 1 VIAL SQ SCH ×3 (06:02→17:01)
[2020-07-22] MEDS: ACETAMINOPHEN 325 MG TABLET (FP) PO PRN (09:24)
[2020-07-22] MEDS: AMINO ACIDS/PROTEIN HYDROLYS 30 ML LIQUID.PKT PO SCH ×2 (09:24→17:03)
[2020-07-22] MEDS: METOPROLOL TARTRATE 25 MG TABLET (FP) PO SCH (09:25)
[2020-07-22] MEDS: CLOPIDOGREL BISULFATE 75 MG TABLET (FP) PO SCH (09:25)
[2020-07-22] MEDS: NYSTATIN 100,000 UNIT/GM TOPICAL CREAM 15 GM TUBE TP SCH (09:25)
[2020-07-22] MEDS ORDERED: LACTOBACILLUS ACIDOPHILUS 1 TABLET PO SCH (10:00)
[2020-07-22] MEDS ORDERED: MULTIVITAMINS THER W-MINERALS COMBO TABLET (FP) PO SCH (10:00)
[2020-07-22] MEDS ORDERED: LISINOPRIL 20 MG TABLET PO SCH (10:00)
[2020-07-22] MEDS ORDERED: SOLIFENACIN SUCCINATE 5 MG TAB PO SCH (10:00)
[2020-07-22] MEDS ORDERED: SODIUM HYPOCHLORITE 0.25%- 473 ML BULK BOTTLE TP SCH (10:00)
[2020-07-22] MEDS ORDERED: amLODIPine BESYLATE 10 MG TABLET (FP) PO SCH (10:00)
[2020-07-22] MEDS ORDERED: INSULIN (NOVOLOG) ASPART 100 UNITS/ML 10ML VIAL ONE (11:42)
[2020-07-22] MEDS ORDERED: COLLAGENASE CLOSTRIDIUM HIST. 30 GRAMS TUBE TP SCH (15:00)
[2020-07-22] MEDS: LACTATED RINGERS SOLUTION 1,000 ML IV SCH (17:02)
[2020-07-22] MEDS: SODIUM CHLORIDE 0.45% 1,000 ML IV SCH (17:02)
[2020-07-22 20:54] VITALS: BP 158/66; PULSE 98; TEMP 100.1
== END 2020-07-22 20:00 | DRG 271 ==
LOC: JER 16:17 → JERBED 19:06 → J6S 07-06 00:34
PROVIDERS: ADMIT Hospitalist; ATTEND Internal Medicine
PROC: 0JBQ0ZZ Excision of Right Foot Subcutaneous Tissue and Fascia, Open Approach (ICD-10-PCS; principal; 2020-07-08 16:00)
PROC: 04CK3ZZ Extirpation of Matter from Right Femoral Artery, Percutaneous Approach (ICD-10-PCS; 2020-07-21)
PROC: X27H385 Dilation of Right Femoral Artery with Sustained Release Drug-eluting Intraluminal Device, Percutaneous Approach, New Technology Group 5 (ICD-10-PCS; 2020-07-21)
PROC: 3E03317 Introduction of Other Thrombolytic into Peripheral Vein, Percutaneous Approach (ICD-10-PCS; 2020-07-21)
PROC: B41DZZZ Fluoroscopy of Aorta and Bilateral Lower Extremity Arteries (ICD-10-PCS; 2020-07-21)
PROC: 02HV33Z Insertion of Infusion Device into Superior Vena Cava, Percutaneous Approach (ICD-10-PCS; 2020-07-22)
PROC: B548ZZA Ultrasonography of Superior Vena Cava, Guidance (ICD-10-PCS; 2020-07-22)
DX: E11.52 Type 2 diabetes mellitus with diabetic peripheral angiopathy with gangrene (principal); I96 Gangrene, not elsewhere classified; L02.611 Cutaneous abscess of right foot; M86.9 Osteomyelitis, unspecified; E11.65 Type 2 diabetes mellitus with hyperglycemia; E83.42 Hypomagnesemia; I10 Essential (primary) hypertension; D72.829 Elevated white blood cell count, unspecified; E78.5 Hyperlipidemia, unspecified; E66.9 Obesity, unspecified; Z68.29 Body mass index [BMI] 29.0-29.9, adult; E11.621 Type 2 diabetes mellitus with foot ulcer
CPT/HCPCS: 36415; 36569; 71045-TC-FY; 71250-TC; 73630-TC-RT-FY; 76000-TC-FY; 77001-TC-FY; 80048; 80053; 81003; 82962; 83036; 83605; 83735; 85025; 85027; 85610; 85651; 85730; 86140; 87040; 87070; 87075; 87076; 87077; 87086; 87186; 87205; 87324; 87449; 88304-TC; 93005; 93010; 93922; 93926-TC; 94010; 94760; 97116-GP; 97162-GP; 99285-25; C1751; C9803; G0463-25; G0480; J0131; J1644; U0003; U0005

== ENCOUNTER 2020-10-07 16:24 | Inpatient (IN) | payer BC ==
[2020-10-07] MEDS ORDERED: SODIUM CHLORIDE 1,000 ML IV ONE (16:45)
[2020-10-07 17:49] LABS: VENOUS BASE EXCESS -5.6 mmol/L (-2-2); VENOUS O2 SATURATION 87.5 % (70-80); VENOUS PCO2 33.7 mmHg (38-52); VENOUS PH 7.365 (7.310-7.410)
[2020-10-07 17:52] LABS: HEMATOCRIT 37.5 % (32.4-45.2); HEMOGLOBIN 12.6 GM/dL (10.7-15.3); MCH 28.2 pg (25.7-33.7); MCHC 33.6 g/dl (32.0-36.0); MEAN PLT VOLUME 8.1 fl (7.5-11.1); PLATELET COUNT 362 10^3/uL (134-434); RBC 4.47 M/mm3 (3.60-5.2); RDW 16.8 % (11.6-15.6); WHITE BLOOD COUNT 15.3 K/mm3 (4.0-10.0)
[2020-10-07 18:16] LABS: CHLORIDE 100 mmol/L (98-107); INR 1.27 (0.83-1.09); PROTHROMBIN TIME (PATIENT) 15.3 SEC (9.7-13.0); SODIUM 137 mmol/L (136-145)
[2020-10-07 18:18] LABS: ACTIVATED PTT 27.9 SECONDS (25.2-36.5); ALBUMIN 2.7 g/dl (3.4-5.0); ANION GAP 14 MMOL/L (8-16); CALCIUM 9.1 mg/dL (8.5-10.1); CO2 22 mmol/L (21-32)
[2020-10-07 18:19] LABS: GLUCOSE,RANDOM 364 mg/dL (74-106)
[2020-10-07 18:22] LABS: CREATININE 0.5 mg/dL (0.55-1.3); SGOT/AST 9 U/L (15-37); SGPT/ALT 15 U/L (13-61)
[2020-10-07 18:23] LABS: BILIRUBIN,TOTAL 0.4 mg/dL (0.2-1)
[2020-10-07 18:25] LABS: ALK PHOS 107 U/L (45-117)
[2020-10-07 18:26] LABS: LACTIC ACID 2.1 mmol/L (0.4-2.0)
[2020-10-07] MEDS ORDERED: SODIUM CHLORIDE 500 ML IV STA (18:44)
[2020-10-07] MEDS ORDERED: ACETAMINOPHEN 1000 MG/100 ML VIAL (NON FORMULARY) IVPB ONE (18:44)
[2020-10-07 18:50] LABS: EPI CELLS 5 /uL (0-25.1); HYALINE CASTS 1 /uL (0-3.1); URINE APPEARANCE TURBID; URINE BACTERIA 37 /uL (0-1359); URINE BILIRUBIN NEGATIVE (NEGATIVE); URINE COLOR YELLOW; URINE GLUCOSE (UA) 3+ (NEGATIVE); URINE KETONE 4+ (NEGATIVE); URINE LEUK ESTERASE 2+ (NEGATIVE); URINE NITRITE NEGATIVE (NEGATIVE); URINE PROTEIN 1+ (NEGATIVE); URINE UROBILINOGEN 0.2 mg/dL (0.2-1.0); URINE WBC 12020 /uL (0-25.8)
[2020-10-07] MEDS ORDERED: ACETAMINOPHEN INJECTION 100 ML IVPB ONE (18:56)
[2020-10-07] MEDS ORDERED: CEFTRIAXONE 1 GM in DEXTROSE 5%-WATER - 50 ML IVPB ONE (19:03)
[2020-10-07] MEDS ORDERED: CEFTRIAXONE 1 GM/50 ML BAG ONE (19:43)
[2020-10-07 19:54] LABS: ANISOCYTOSIS 1+; MACROCYTOSIS 1+; PLATELET ESTIMATE NORMAL
[2020-10-07 22:05] LABS: URINE RBC 536.3 /uL (0-23.9); YEAST MODERATE (NEGATIVE)
[2020-10-08] MEDS ORDERED: ZINC OXIDE/PETROLATUM,WHITE 1 APPLIC OINT...G. TP PRN (02:26)
[2020-10-08] MEDS ORDERED: ACETAMINOPHEN 1000 MG/100 ML VIAL (NON FORMULARY) IVPB PRN (06:13)
[2020-10-08] MEDS: INSULIN SLIDING SCALE (NOVOLOG) 1 VIAL SQ SCH ×4 (07:58→21:20)
[2020-10-08 08:31] LABS: HEMATOCRIT 34.2 % (32.4-45.2); HEMOGLOBIN 11.5 GM/dL (10.7-15.3); MCH 28.4 pg (25.7-33.7); MCHC 33.6 g/dl (32.0-36.0); MEAN CELL VOLUME 84.4 fl (80-96); MEAN PLT VOLUME 7.9 fl (7.5-11.1); PLATELET COUNT 340 10^3/uL (134-434); RBC 4.05 M/mm3 (3.60-5.2); RDW 16.5 % (11.6-15.6)
[2020-10-08 08:55] LABS: BLOOD UREA NITROGEN 11.9 mg/dL (7-18); CALCIUM 8.6 mg/dL (8.5-10.1); MAGNESIUM 1.3 mg/dL (1.8-2.4)
[2020-10-08 08:58] LABS: CREATININE 0.4 mg/dL (0.55-1.3); PHOSPHOROUS 2.6 mg/dL (2.5-4.9)
[2020-10-08] MEDS ORDERED: cefTRIAXone SODIUM 1 GM VIAL ONE (10:42)
[2020-10-08] MEDS ORDERED: DEXTROSE 5%-WATER - 50 ML IVPB ONE (10:42)
[2020-10-08] MEDS: amLODIPine BESYLATE 5 MG TABLET (FP) PO SCH (10:46)
[2020-10-08] MEDS: LISINOPRIL 20 MG TABLET PO SCH (10:46)
[2020-10-08] MEDS: CEFTRIAXONE 1 GM in DEXTROSE 5%-WATER - 50 ML IVPB SCH (10:47)
[2020-10-08] MEDS ORDERED: INSULIN (NOVOLOG) ASPART 100 UNITS/ML 10ML VIAL ONE ×2 (11:29→20:16)
[2020-10-08] MEDS ORDERED: VANCOMYCIN 1 GM in D5W (PRE-DOCKED) 1,000 MG/250 ML IVPB ONE (11:45)
[2020-10-08] MEDS: INSULIN (LEVEMIR) 100 UNITS/ML UNITS SQ SCH ×2 (14:17→21:19)
[2020-10-08] MEDS ORDERED: PT OWN MED DRAWER 7, Y5N ONE (15:16)
[2020-10-08] MEDS: VANCOMYCIN 1 GRAM (PRE-DOCKED) 1,000 MG/250 ML BAG IVPB SCH (21:19)
[2020-10-08] MEDS: METOPROLOL TARTRATE 25 MG TABLET (FP) PO SCH (21:19)
[2020-10-08] MEDS: NYSTATIN 100,000 UNIT/GM TOPICAL CREAM 15 GM TUBE TP SCH (21:19)
[2020-10-09] MEDS ORDERED: PT OWN MED DRAWER 7, Y5N ONE ×2 (05:43→09:23)
[2020-10-09] MEDS: INSULIN SLIDING SCALE (NOVOLOG) 1 VIAL SQ SCH ×4 (06:00→21:10)
[2020-10-09] MEDS: VANCOMYCIN 1 GRAM (PRE-DOCKED) 1,000 MG/250 ML BAG IVPB SCH ×2 (06:58→20:41)
[2020-10-09] MEDS ORDERED: cefTRIAXone SODIUM 1 GM VIAL ONE (09:23)
[2020-10-09] MEDS ORDERED: DEXTROSE 5%-WATER - 50 ML IVPB ONE (09:24)
[2020-10-09] MEDS: CEFTRIAXONE 1 GM in DEXTROSE 5%-WATER - 50 ML IVPB SCH (09:28)
[2020-10-09] MEDS: SOLIFENACIN SUCCINATE 5 MG TAB PO SCH (09:29)
[2020-10-09] MEDS: amLODIPine BESYLATE 5 MG TABLET (FP) PO SCH (09:29)
[2020-10-09] MEDS: SODIUM HYPOCHLORITE 0.25%- 473 ML BULK BOTTLE TP SCH (09:29)
[2020-10-09] MEDS: CLOPIDOGREL BISULFATE 75 MG TABLET (FP) PO SCH (09:29)
[2020-10-09] MEDS: METOPROLOL TARTRATE 25 MG TABLET (FP) PO SCH ×2 (09:29→21:09)
[2020-10-09] MEDS: NYSTATIN 100,000 UNIT/GM TOPICAL CREAM 15 GM TUBE TP SCH ×2 (09:29→21:10)
[2020-10-09] MEDS: LISINOPRIL 20 MG TABLET PO SCH (09:29)
[2020-10-09] MEDS: LACTOBACILLUS ACIDOPHILUS 1 TABLET PO SCH (09:29)
[2020-10-09] MEDS: INSULIN (LEVEMIR) 100 UNITS/ML UNITS SQ SCH (21:09)
[2020-10-10] MEDS ORDERED: PT OWN MED DRAWER 7, Y5N ONE ×2 (06:00→17:33)
[2020-10-10] MEDS: INSULIN SLIDING SCALE (NOVOLOG) 1 VIAL SQ SCH ×4 (06:03→21:45)
[2020-10-10] MEDS: VANCOMYCIN 1 GRAM (PRE-DOCKED) 1,000 MG/250 ML BAG IVPB SCH ×2 (08:03→21:38)
[2020-10-10] MEDS ORDERED: cefTRIAXone SODIUM 1 GM VIAL ONE (09:02)
[2020-10-10] MEDS ORDERED: DEXTROSE 5%-WATER - 50 ML IVPB ONE (09:02)
[2020-10-10] MEDS: amLODIPine BESYLATE 5 MG TABLET (FP) PO SCH (09:10)
[2020-10-10] MEDS: SOLIFENACIN SUCCINATE 5 MG TAB PO SCH (09:10)
[2020-10-10] MEDS: LACTOBACILLUS ACIDOPHILUS 1 TABLET PO SCH (09:10)
[2020-10-10] MEDS: METOPROLOL TARTRATE 25 MG TABLET (FP) PO SCH ×2 (09:10→21:42)
[2020-10-10] MEDS: LISINOPRIL 20 MG TABLET PO SCH (09:10)
[2020-10-10] MEDS: ACETAMINOPHEN 325 MG TABLET (FP) PO PRN ×2 (09:10→21:42)
[2020-10-10] MEDS: CLOPIDOGREL BISULFATE 75 MG TABLET (FP) PO SCH (09:10)
[2020-10-10] MEDS: CEFTRIAXONE 1 GM in DEXTROSE 5%-WATER - 50 ML IVPB SCH (10:55)
[2020-10-10] MEDS: NYSTATIN 100,000 UNIT/GM TOPICAL CREAM 15 GM TUBE TP SCH ×2 (14:02→21:47)
[2020-10-10] MEDS: FLUCONAZOLE 100 MG TABLET (UD) PO SCH (14:54)
[2020-10-10] MEDS: SODIUM HYPOCHLORITE 0.25%- 473 ML BULK BOTTLE TP SCH (16:00)
[2020-10-10 17:21] VITALS: BMI 29.7
[2020-10-10] MEDS: INSULIN (LEVEMIR) 100 UNITS/ML UNITS SQ SCH (21:46)
[2020-10-11] MEDS: INSULIN SLIDING SCALE (NOVOLOG) 1 VIAL SQ SCH ×4 (06:01→21:02)
[2020-10-11] MEDS: sitaGLIPtin PHOSPHATE 50 MG TABLET PO SCH (06:02)
[2020-10-11] MEDS ORDERED: DEXTROSE 5%-WATER - 50 ML IVPB ONE (09:22)
[2020-10-11] MEDS ORDERED: cefTRIAXone SODIUM 1 GM VIAL ONE (09:22)
[2020-10-11 09:38] LABS: BASO % 0.4 % (0-2.0); EOS % 0.6 % (0-4.5); HEMATOCRIT 31.4 % (32.4-45.2); HEMOGLOBIN 10.6 GM/dL (10.7-15.3); LYMPH % 5.9 % (8-40); MCH 27.7 pg (25.7-33.7); MCHC 33.8 g/dl (32.0-36.0); MEAN CELL VOLUME 82.1 fl (80-96); MEAN PLT VOLUME 7.5 fl (7.5-11.1); MONO % 6.8 % (3.8-10.2); NEUT % 86.3 % (42.8-82.8); PLATELET COUNT 305 10^3/uL (134-434); RBC 3.83 M/mm3 (3.60-5.2); RDW 16.6 % (11.6-15.6); WHITE BLOOD COUNT 10.1 K/mm3 (4.0-10.0)
[2020-10-11] MEDS: VANCOMYCIN 1 GRAM (PRE-DOCKED) 1,000 MG/250 ML BAG IVPB SCH ×2 (09:38→21:01)
[2020-10-11] MEDS: LACTOBACILLUS ACIDOPHILUS 1 TABLET PO SCH (09:39)
[2020-10-11] MEDS: SODIUM HYPOCHLORITE 0.25%- 473 ML BULK BOTTLE TP SCH (09:39)
[2020-10-11] MEDS: INSULIN (LEVEMIR) 100 UNITS/ML UNITS SQ SCH ×2 (09:40→21:02)
[2020-10-11] MEDS: METOPROLOL TARTRATE 25 MG TABLET (FP) PO SCH ×2 (09:40→21:02)
[2020-10-11] MEDS: CEFTRIAXONE 1 GM in DEXTROSE 5%-WATER - 50 ML IVPB SCH (09:41)
[2020-10-11] MEDS: amLODIPine BESYLATE 5 MG TABLET (FP) PO SCH (09:41)
[2020-10-11] MEDS: CLOPIDOGREL BISULFATE 75 MG TABLET (FP) PO SCH (09:41)
[2020-10-11] MEDS: LISINOPRIL 20 MG TABLET PO SCH (09:41)
[2020-10-11] MEDS ORDERED: PT OWN MED DRAWER 7, Y5N ONE (09:43)
[2020-10-11] MEDS: NYSTATIN 100,000 UNIT/GM TOPICAL CREAM 15 GM TUBE TP SCH ×2 (09:45→21:03)
[2020-10-11] MEDS: SOLIFENACIN SUCCINATE 5 MG TAB PO SCH (09:45)
[2020-10-11] MEDS: FLUCONAZOLE 100 MG TABLET (UD) PO SCH (09:45)
[2020-10-11 10:09] LABS: BLOOD UREA NITROGEN 9.8 mg/dL (7-18); CALCIUM 8.2 mg/dL (8.5-10.1)
[2020-10-11 10:12] LABS: CREATININE 0.4 mg/dL (0.55-1.3)
[2020-10-11 10:13] LABS: BILIRUBIN,TOTAL 0.2 mg/dL (0.2-1); TOT PROT 5.6 g/dl (6.4-8.2)
[2020-10-11 10:56] LABS: ALBUMIN 1.8 g/dl (3.4-5.0)
[2020-10-11] MEDS ORDERED: POTASSIUM CHLORIDE ORAL LIQUID 20 MEQ/15 ML PO ONE (11:23)
[2020-10-11] MEDS: ACETAMINOPHEN 325 MG TABLET (FP) PO PRN (22:55)
[2020-10-12] MEDS: sitaGLIPtin PHOSPHATE 50 MG TABLET PO SCH (06:04)
[2020-10-12] MEDS: INSULIN SLIDING SCALE (NOVOLOG) 1 VIAL SQ SCH ×4 (06:04→21:02)
[2020-10-12] MEDS: VANCOMYCIN 1 GRAM (PRE-DOCKED) 1,000 MG/250 ML BAG IVPB SCH ×2 (08:31→20:34)
[2020-10-12] MEDS ORDERED: PT OWN MED DRAWER 7, Y5N ONE (09:41)
[2020-10-12] MEDS: LACTOBACILLUS ACIDOPHILUS 1 TABLET PO SCH (09:43)
[2020-10-12] MEDS: METOPROLOL TARTRATE 25 MG TABLET (FP) PO SCH ×2 (09:44→21:01)
[2020-10-12] MEDS: ACETAMINOPHEN 325 MG TABLET (FP) PO PRN (09:44)
[2020-10-12] MEDS: FLUCONAZOLE 100 MG TABLET (UD) PO SCH (09:45)
[2020-10-12] MEDS: SODIUM HYPOCHLORITE 0.25%- 473 ML BULK BOTTLE TP SCH (09:45)
[2020-10-12] MEDS: LISINOPRIL 20 MG TABLET PO SCH (09:45)
[2020-10-12] MEDS: CLOPIDOGREL BISULFATE 75 MG TABLET (FP) PO SCH (09:45)
[2020-10-12] MEDS: amLODIPine BESYLATE 5 MG TABLET (FP) PO SCH (09:45)
[2020-10-12] MEDS: SOLIFENACIN SUCCINATE 5 MG TAB PO SCH (09:45)
[2020-10-12] MEDS: INSULIN (LEVEMIR) 100 UNITS/ML UNITS SQ SCH ×2 (09:46→21:01)
[2020-10-12] MEDS: NYSTATIN 100,000 UNIT/GM TOPICAL CREAM 15 GM TUBE TP SCH (09:46)
[2020-10-12] MEDS ORDERED: INSULIN (LEVEMIR) 100 UNITS/ML UNITS SQ ONE (10:18)
[2020-10-12] MEDS ORDERED: INSULIN (NOVOLOG) ASPART 100 UNITS/ML 10ML VIAL ONE ×4 (11:30→20:01)
[2020-10-12] MEDS: IBUPROFEN 400 MG TABLET (FP) PO PRN ×2 (11:39→20:34)
[2020-10-12] MEDS: NYSTATIN POWDER 100,000 UNITS/GM - 15 GM TOPICAL POWDER TP SCH (21:54)
[2020-10-13] MEDS: sitaGLIPtin PHOSPHATE 50 MG TABLET PO SCH (06:17)
[2020-10-13] MEDS: INSULIN SLIDING SCALE (NOVOLOG) 1 VIAL SQ SCH ×4 (06:17→21:03)
[2020-10-13] MEDS: IBUPROFEN 400 MG TABLET (FP) PO PRN ×2 (06:50→18:57)
[2020-10-13] MEDS: VANCOMYCIN 1 GRAM (PRE-DOCKED) 1,000 MG/250 ML BAG IVPB SCH (07:57)
[2020-10-13 08:44] LABS: HEMATOCRIT 30.6 % (32.4-45.2); HEMOGLOBIN 10.2 GM/dL (10.7-15.3); MCH 27.8 pg (25.7-33.7); MCHC 33.4 g/dl (32.0-36.0); MEAN CELL VOLUME 83.3 fl (80-96); MEAN PLT VOLUME 7.5 fl (7.5-11.1); PLATELET COUNT 343 10^3/uL (134-434); RBC 3.67 M/mm3 (3.60-5.2); RDW 16.6 % (11.6-15.6); WHITE BLOOD COUNT 8.6 K/mm3 (4.0-10.0)
[2020-10-13] MEDS ORDERED: PT OWN MED DRAWER 7, Y5N ONE ×2 (08:59→15:59)
[2020-10-13 09:17] LABS: CALCIUM 8.4 mg/dL (8.5-10.1)
[2020-10-13 09:18] LABS: ALBUMIN 1.7 g/dl (3.4-5.0); BLOOD UREA NITROGEN 12.1 mg/dL (7-18)
[2020-10-13 09:20] LABS: CREATININE 0.3 mg/dL (0.55-1.3)
[2020-10-13 09:22] LABS: BILIRUBIN,TOTAL 0.2 mg/dL (0.2-1); TOT PROT 5.6 g/dl (6.4-8.2)
[2020-10-13] MEDS: METOPROLOL TARTRATE 25 MG TABLET (FP) PO SCH ×2 (09:37→21:03)
[2020-10-13] MEDS: LISINOPRIL 20 MG TABLET PO SCH (09:37)
[2020-10-13] MEDS: SOLIFENACIN SUCCINATE 5 MG TAB PO SCH (09:38)
[2020-10-13] MEDS: FLUCONAZOLE 100 MG TABLET (UD) PO SCH (09:38)
[2020-10-13] MEDS: NYSTATIN POWDER 100,000 UNITS/GM - 15 GM TOPICAL POWDER TP SCH ×2 (09:38→21:04)
[2020-10-13] MEDS: LACTOBACILLUS ACIDOPHILUS 1 TABLET PO SCH (09:38)
[2020-10-13] MEDS: CLOPIDOGREL BISULFATE 75 MG TABLET (FP) PO SCH (09:38)
[2020-10-13] MEDS: amLODIPine BESYLATE 5 MG TABLET (FP) PO SCH (09:38)
[2020-10-13] MEDS: INSULIN (LEVEMIR) 100 UNITS/ML UNITS SQ SCH ×3 (09:39→21:04)
[2020-10-13 09:46] LABS: ANISOCYTOSIS 0; HELMET CELLS 0; HOWELL-JOLLY BODIES 0; MACROCYTOSIS 0; OVALOCYTE 0; PLATELET ESTIMATE NORMAL; ROULEAU 0; SICKELED CELLS 0; TARGET CELLS 0; TEAR DROP CELLS 0; TOXIC GRANULATION 0
[2020-10-13] MEDS ORDERED: INSULIN (NOVOLOG) ASPART 100 UNITS/ML 10ML VIAL ONE (12:17)
[2020-10-13] MEDS: SODIUM HYPOCHLORITE 0.25%- 473 ML BULK BOTTLE TP SCH (13:16)
[2020-10-13] MEDS ORDERED: DAPTOMYCIN 720 MG in SODIUM CHLORIDE 50 ML IVPB SCH (14:15)
[2020-10-13] MEDS: DAPTOMYCIN 720 MG in SODIUM CHLORIDE 50 ML IVPB SCH (16:00)
[2020-10-13] MEDS: ACETAMINOPHEN 325 MG TABLET (FP) PO PRN (21:02)
[2020-10-14] MEDS: sitaGLIPtin PHOSPHATE 50 MG TABLET PO SCH (06:52)
[2020-10-14] MEDS: INSULIN (LEVEMIR) 100 UNITS/ML UNITS SQ SCH ×2 (06:52→21:13)
[2020-10-14] MEDS: INSULIN SLIDING SCALE (NOVOLOG) 1 VIAL SQ SCH ×4 (06:54→21:14)
[2020-10-14] MEDS ORDERED: PT OWN MED DRAWER 7, Y5N ONE ×2 (09:11→15:51)
[2020-10-14] MEDS: METOPROLOL TARTRATE 25 MG TABLET (FP) PO SCH ×2 (09:16→21:11)
[2020-10-14] MEDS: LACTOBACILLUS ACIDOPHILUS 1 TABLET PO SCH (09:16)
[2020-10-14] MEDS: FLUCONAZOLE 100 MG TABLET (UD) PO SCH (09:16)
[2020-10-14] MEDS: CLOPIDOGREL BISULFATE 75 MG TABLET (FP) PO SCH (09:18)
[2020-10-14] MEDS: LISINOPRIL 20 MG TABLET PO SCH (09:18)
[2020-10-14] MEDS: amLODIPine BESYLATE 5 MG TABLET (FP) PO SCH (09:18)
[2020-10-14] MEDS: SOLIFENACIN SUCCINATE 5 MG TAB PO SCH (09:18)
[2020-10-14] MEDS: NYSTATIN POWDER 100,000 UNITS/GM - 15 GM TOPICAL POWDER TP SCH ×2 (09:19→21:11)
[2020-10-14] MEDS: SODIUM HYPOCHLORITE 0.25%- 473 ML BULK BOTTLE TP SCH (14:48)
[2020-10-14] MEDS: DAPTOMYCIN 720 MG in SODIUM CHLORIDE 50 ML IVPB SCH (15:56)
[2020-10-14] MEDS: ACETAMINOPHEN 325 MG TABLET (FP) PO PRN (21:11)
[2020-10-15] MEDS: IBUPROFEN 400 MG TABLET (FP) PO PRN ×2 (02:58→20:02)
[2020-10-15] MEDS: INSULIN SLIDING SCALE (NOVOLOG) 1 VIAL SQ SCH ×4 (06:38→21:02)
[2020-10-15] MEDS: sitaGLIPtin PHOSPHATE 50 MG TABLET PO SCH (06:38)
[2020-10-15] MEDS: INSULIN (LEVEMIR) 100 UNITS/ML UNITS SQ SCH ×2 (06:39→21:02)
[2020-10-15] MEDS ORDERED: PT OWN MED DRAWER 7, Y5N ONE (09:22)
[2020-10-15] MEDS: METOPROLOL TARTRATE 25 MG TABLET (FP) PO SCH ×2 (09:34→21:02)
[2020-10-15] MEDS: FLUCONAZOLE 100 MG TABLET (UD) PO SCH (09:34)
[2020-10-15] MEDS: LISINOPRIL 20 MG TABLET PO SCH (09:34)
[2020-10-15] MEDS: amLODIPine BESYLATE 5 MG TABLET (FP) PO SCH (09:34)
[2020-10-15] MEDS: LACTOBACILLUS ACIDOPHILUS 1 TABLET PO SCH (09:34)
[2020-10-15] MEDS: CLOPIDOGREL BISULFATE 75 MG TABLET (FP) PO SCH (09:34)
[2020-10-15] MEDS: SOLIFENACIN SUCCINATE 5 MG TAB PO SCH (09:34)
[2020-10-15] MEDS: NYSTATIN POWDER 100,000 UNITS/GM - 15 GM TOPICAL POWDER TP SCH ×2 (09:35→21:03)
[2020-10-15] MEDS: SODIUM HYPOCHLORITE 0.25%- 473 ML BULK BOTTLE TP SCH (09:35)
[2020-10-15] MEDS ORDERED: INSULIN (NOVOLOG) ASPART 100 UNITS/ML 10ML VIAL ONE ×2 (12:14→20:27)
[2020-10-15 14:09] LABS: CHOLESTEROL 162 mg/dL (50-200); LDL CHOLESTEROL (ONLY SJRH) 94 mg/dL (5-100); TRIGLYCERIDES 247 mg/dL (0-150)
[2020-10-15 14:11] LABS: HDL CHOLESTEROL 24 mg/dL (40-60)
[2020-10-15] MEDS: DAPTOMYCIN 720 MG in SODIUM CHLORIDE 50 ML IVPB SCH (16:04)
[2020-10-16] MEDS: sitaGLIPtin PHOSPHATE 50 MG TABLET PO SCH (06:39)
[2020-10-16] MEDS: INSULIN (LEVEMIR) 100 UNITS/ML UNITS SQ SCH ×2 (06:39→21:42)
[2020-10-16] MEDS: INSULIN SLIDING SCALE (NOVOLOG) 1 VIAL SQ SCH ×4 (06:47→21:42)
[2020-10-16] MEDS: LACTOBACILLUS ACIDOPHILUS 1 TABLET PO SCH (09:31)
[2020-10-16] MEDS: CLOPIDOGREL BISULFATE 75 MG TABLET (FP) PO SCH (09:31)
[2020-10-16] MEDS: SODIUM HYPOCHLORITE 0.25%- 473 ML BULK BOTTLE TP SCH (09:31)
[2020-10-16] MEDS: SOLIFENACIN SUCCINATE 5 MG TAB PO SCH (09:31)
[2020-10-16] MEDS: LISINOPRIL 20 MG TABLET PO SCH (09:31)
[2020-10-16] MEDS: METOPROLOL TARTRATE 25 MG TABLET (FP) PO SCH ×2 (09:31→21:43)
[2020-10-16] MEDS: NYSTATIN POWDER 100,000 UNITS/GM - 15 GM TOPICAL POWDER TP SCH ×2 (09:32→21:43)
[2020-10-16] MEDS ORDERED: PT OWN MED DRAWER 7, Y5N ONE (09:36)
[2020-10-16] MEDS: FLUCONAZOLE 100 MG TABLET (UD) PO SCH (09:37)
[2020-10-16] MEDS: amLODIPine BESYLATE 5 MG TABLET (FP) PO SCH (09:37)
[2020-10-16] MEDS: DAPTOMYCIN 720 MG in SODIUM CHLORIDE 50 ML IVPB SCH (16:26)
[2020-10-16] MEDS: IBUPROFEN 400 MG TABLET (FP) PO PRN (18:05)
[2020-10-16] MEDS ORDERED: traMADol HCL 50 MG TABLET PO ONE (20:32)
[2020-10-17] MEDS: INSULIN SLIDING SCALE (NOVOLOG) 1 VIAL SQ SCH ×4 (05:59→21:40)
[2020-10-17] MEDS: sitaGLIPtin PHOSPHATE 50 MG TABLET PO SCH (05:59)
[2020-10-17] MEDS: INSULIN (LEVEMIR) 100 UNITS/ML UNITS SQ SCH ×2 (05:59→21:25)
[2020-10-17 09:11] LABS: HEMOGLOBIN 10.1 GM/dL (10.7-15.3); MCH 27.8 pg (25.7-33.7); MCHC 33.6 g/dl (32.0-36.0); MEAN CELL VOLUME 82.9 fl (80-96); MEAN PLT VOLUME 6.9 fl (7.5-11.1); PLATELET COUNT 574 10^3/uL (134-434); RBC 3.62 M/mm3 (3.60-5.2); RDW 16.5 % (11.6-15.6); WHITE BLOOD COUNT 10.3 K/mm3 (4.0-10.0)
[2020-10-17] MEDS ORDERED: PT OWN MED DRAWER 7, Y5N ONE ×2 (09:11→16:37)
[2020-10-17] MEDS: METOPROLOL TARTRATE 25 MG TABLET (FP) PO SCH ×2 (09:20→21:40)
[2020-10-17] MEDS: LACTOBACILLUS ACIDOPHILUS 1 TABLET PO SCH (09:20)
[2020-10-17] MEDS: SODIUM HYPOCHLORITE 0.25%- 473 ML BULK BOTTLE TP SCH (09:21)
[2020-10-17] MEDS: LISINOPRIL 20 MG TABLET PO SCH (09:21)
[2020-10-17] MEDS: SOLIFENACIN SUCCINATE 5 MG TAB PO SCH (09:21)
[2020-10-17] MEDS: NYSTATIN POWDER 100,000 UNITS/GM - 15 GM TOPICAL POWDER TP SCH ×2 (09:21→21:40)
[2020-10-17] MEDS: CLOPIDOGREL BISULFATE 75 MG TABLET (FP) PO SCH (09:21)
[2020-10-17] MEDS: FLUCONAZOLE 100 MG TABLET (UD) PO SCH (09:21)
[2020-10-17] MEDS: amLODIPine BESYLATE 5 MG TABLET (FP) PO SCH (09:21)
[2020-10-17 09:32] LABS: ALBUMIN 1.8 g/dl (3.4-5.0); CALCIUM 8.5 mg/dL (8.5-10.1)
[2020-10-17 09:33] LABS: BLOOD UREA NITROGEN 11.5 mg/dL (7-18)
[2020-10-17 09:35] LABS: URIC ACID 3.2 mg/dL (2.6-7.2)
[2020-10-17 09:36] LABS: CREATININE 0.3 mg/dL (0.55-1.3)
[2020-10-17 09:37] LABS: BILIRUBIN,TOTAL 0.2 mg/dL (0.2-1); TOT PROT 5.8 g/dl (6.4-8.2)
[2020-10-17 10:01] LABS: ANISOCYTOSIS 0; HELMET CELLS 0; HOWELL-JOLLY BODIES 0; MACROCYTOSIS 0; OVALOCYTE 0; PLATELET ESTIMATE NORMAL; ROULEAU 0; SICKELED CELLS 0; TARGET CELLS 0; TEAR DROP CELLS 0; TOXIC GRANULATION 0
[2020-10-17] MEDS ORDERED: INSULIN (NOVOLOG) ASPART 100 UNITS/ML 10ML VIAL ONE (11:30)
[2020-10-17] MEDS: DAPTOMYCIN 720 MG in SODIUM CHLORIDE 50 ML IVPB SCH (16:40)
[2020-10-17] MEDS: ACETAMINOPHEN 325 MG TABLET (FP) PO PRN (21:59)
[2020-10-18] MEDS: INSULIN SLIDING SCALE (NOVOLOG) 1 VIAL SQ SCH ×4 (06:06→21:16)
[2020-10-18] MEDS: INSULIN (LEVEMIR) 100 UNITS/ML UNITS SQ SCH ×2 (06:23→21:16)
[2020-10-18] MEDS: sitaGLIPtin PHOSPHATE 50 MG TABLET PO SCH (06:23)
[2020-10-18] MEDS ORDERED: PT OWN MED DRAWER 7, Y5N ONE (08:51)
[2020-10-18] MEDS: METOPROLOL TARTRATE 25 MG TABLET (FP) PO SCH ×2 (09:11→21:15)
[2020-10-18] MEDS: LACTOBACILLUS ACIDOPHILUS 1 TABLET PO SCH (09:11)
[2020-10-18] MEDS: SOLIFENACIN SUCCINATE 5 MG TAB PO SCH (09:11)
[2020-10-18] MEDS: amLODIPine BESYLATE 5 MG TABLET (FP) PO SCH (09:11)
[2020-10-18] MEDS: LISINOPRIL 20 MG TABLET PO SCH (09:11)
[2020-10-18] MEDS: CLOPIDOGREL BISULFATE 75 MG TABLET (FP) PO SCH (09:11)
[2020-10-18] MEDS: SODIUM HYPOCHLORITE 0.25%- 473 ML BULK BOTTLE TP SCH (09:12)
[2020-10-18] MEDS: NYSTATIN POWDER 100,000 UNITS/GM - 15 GM TOPICAL POWDER TP SCH ×2 (09:12→21:16)
[2020-10-18] MEDS: IBUPROFEN 400 MG TABLET (FP) PO PRN (10:52)
[2020-10-18] MEDS: DAPTOMYCIN 720 MG in SODIUM CHLORIDE 50 ML IVPB SCH (16:56)
[2020-10-18] MEDS: ACETAMINOPHEN 325 MG TABLET (FP) PO PRN (21:15)
[2020-10-19] MEDS: INSULIN (LEVEMIR) 100 UNITS/ML UNITS SQ SCH ×2 (06:38→21:00)
[2020-10-19] MEDS: INSULIN SLIDING SCALE (NOVOLOG) 1 VIAL SQ SCH ×4 (06:38→21:01)
[2020-10-19] MEDS: sitaGLIPtin PHOSPHATE 50 MG TABLET PO SCH (06:38)
[2020-10-19 08:54] LABS: HEMATOCRIT 30.9 % (32.4-45.2); HEMOGLOBIN 10.5 GM/dL (10.7-15.3); MCH 28.1 pg (25.7-33.7); MCHC 34.1 g/dl (32.0-36.0); MEAN CELL VOLUME 82.4 fl (80-96); MEAN PLT VOLUME 6.6 fl (7.5-11.1); PLATELET COUNT 636 10^3/uL (134-434); RBC 3.75 M/mm3 (3.60-5.2); RDW 16.5 % (11.6-15.6)
[2020-10-19] MEDS: SOLIFENACIN SUCCINATE 5 MG TAB PO SCH (09:05)
[2020-10-19] MEDS: METOPROLOL TARTRATE 25 MG TABLET (FP) PO SCH ×2 (09:05→21:00)
[2020-10-19] MEDS: LACTOBACILLUS ACIDOPHILUS 1 TABLET PO SCH (09:05)
[2020-10-19] MEDS: SODIUM HYPOCHLORITE 0.25%- 473 ML BULK BOTTLE TP SCH (09:06)
[2020-10-19] MEDS: amLODIPine BESYLATE 5 MG TABLET (FP) PO SCH (09:06)
[2020-10-19] MEDS: CLOPIDOGREL BISULFATE 75 MG TABLET (FP) PO SCH (09:06)
[2020-10-19] MEDS: NYSTATIN POWDER 100,000 UNITS/GM - 15 GM TOPICAL POWDER TP SCH ×2 (09:06→21:02)
[2020-10-19] MEDS: LISINOPRIL 20 MG TABLET PO SCH (09:06)
[2020-10-19 09:19] LABS: CALCIUM 9.1 mg/dL (8.5-10.1)
[2020-10-19 09:20] LABS: BLOOD UREA NITROGEN 11.7 mg/dL (7-18)
[2020-10-19 09:23] LABS: CREATININE 0.3 mg/dL (0.55-1.3)
[2020-10-19 09:25] LABS: BILIRUBIN,TOTAL 0.2 mg/dL (0.2-1)
[2020-10-19 09:27] LABS: TOT PROT 6.4 g/dl (6.4-8.2)
[2020-10-19 09:43] LABS: ANISOCYTOSIS 1+; MACROCYTOSIS 0; PLATELET ESTIMATE INCREASED
[2020-10-19] MEDS ORDERED: MULTIVITAMINS (DAILY MVI) TABLET (FP) PO ONE (11:06)
[2020-10-19] MEDS: AMINO ACIDS/PROTEIN HYDROLYS 30 ML LIQUID.PKT PO SCH (17:00)
[2020-10-19] MEDS: DAPTOMYCIN 720 MG in SODIUM CHLORIDE 50 ML IVPB SCH (17:00)
[2020-10-19] MEDS: IBUPROFEN 400 MG TABLET (FP) PO PRN (20:11)
[2020-10-19] MEDS ORDERED: INSULIN (NOVOLOG) ASPART 100 UNITS/ML 10ML VIAL ONE (20:27)
[2020-10-20] MEDS: INSULIN SLIDING SCALE (NOVOLOG) 1 VIAL SQ SCH ×4 (06:51→21:46)
[2020-10-20] MEDS: INSULIN (LEVEMIR) 100 UNITS/ML UNITS SQ SCH ×2 (06:52→21:45)
[2020-10-20] MEDS: sitaGLIPtin PHOSPHATE 50 MG TABLET PO SCH (06:52)
[2020-10-20] MEDS: METOPROLOL TARTRATE 25 MG TABLET (FP) PO SCH ×2 (09:17→21:42)
[2020-10-20] MEDS: LISINOPRIL 20 MG TABLET PO SCH (09:17)
[2020-10-20] MEDS: SOLIFENACIN SUCCINATE 5 MG TAB PO SCH (09:18)
[2020-10-20] MEDS: CLOPIDOGREL BISULFATE 75 MG TABLET (FP) PO SCH (09:18)
[2020-10-20] MEDS: NYSTATIN POWDER 100,000 UNITS/GM - 15 GM TOPICAL POWDER TP SCH ×2 (09:18→21:47)
[2020-10-20] MEDS: LACTOBACILLUS ACIDOPHILUS 1 TABLET PO SCH (09:18)
[2020-10-20] MEDS: AMINO ACIDS/PROTEIN HYDROLYS 30 ML LIQUID.PKT PO SCH ×2 (09:18→16:38)
[2020-10-20] MEDS: amLODIPine BESYLATE 5 MG TABLET (FP) PO SCH (10:38)
[2020-10-20] MEDS: IBUPROFEN 400 MG TABLET (FP) PO PRN ×2 (11:21→19:05)
[2020-10-20] MEDS: COLLAGENASE CLOSTRIDIUM HIST. 30 GRAMS TUBE TP SCH (16:36)
[2020-10-20] MEDS: SODIUM HYPOCHLORITE 0.25%- 473 ML BULK BOTTLE TP SCH (16:36)
[2020-10-20] MEDS: DAPTOMYCIN 720 MG in SODIUM CHLORIDE 50 ML IVPB SCH (16:37)
[2020-10-21] MEDS: sitaGLIPtin PHOSPHATE 50 MG TABLET PO SCH (06:22)
[2020-10-21] MEDS: INSULIN (LEVEMIR) 100 UNITS/ML UNITS SQ SCH ×2 (06:22→22:29)
[2020-10-21] MEDS: INSULIN SLIDING SCALE (NOVOLOG) 1 VIAL SQ SCH ×4 (06:23→22:28)
[2020-10-21 08:38] LABS: HEMATOCRIT 31.9 % (32.4-45.2); HEMOGLOBIN 10.9 GM/dL (10.7-15.3); MCHC 34.1 g/dl (32.0-36.0); MEAN CELL VOLUME 82.2 fl (80-96); MEAN PLT VOLUME 6.8 fl (7.5-11.1); PLATELET COUNT 604 10^3/uL (134-434); RBC 3.88 M/mm3 (3.60-5.2); WHITE BLOOD COUNT 10.7 K/mm3 (4.0-10.0)
[2020-10-21 09:00] LABS: CALCIUM 8.9 mg/dL (8.5-10.1)
[2020-10-21 09:01] LABS: ALBUMIN 2.1 g/dl (3.4-5.0); BLOOD UREA NITROGEN 19.7 mg/dL (7-18)
[2020-10-21 09:04] LABS: CREATININE 0.4 mg/dL (0.55-1.3)
[2020-10-21 09:05] LABS: BILIRUBIN,TOTAL 0.2 mg/dL (0.2-1); TOT PROT 6.6 g/dl (6.4-8.2)
[2020-10-21] MEDS: METOPROLOL TARTRATE 25 MG TABLET (FP) PO SCH ×2 (10:05→22:30)
[2020-10-21] MEDS: LACTOBACILLUS ACIDOPHILUS 1 TABLET PO SCH (10:05)
[2020-10-21] MEDS: LISINOPRIL 20 MG TABLET PO SCH (10:06)
[2020-10-21] MEDS: AMINO ACIDS/PROTEIN HYDROLYS 30 ML LIQUID.PKT PO SCH ×3 (10:06→17:51)
[2020-10-21] MEDS: CLOPIDOGREL BISULFATE 75 MG TABLET (FP) PO SCH (10:06)
[2020-10-21] MEDS: SOLIFENACIN SUCCINATE 5 MG TAB PO SCH (10:06)
[2020-10-21] MEDS: amLODIPine BESYLATE 5 MG TABLET (FP) PO SCH (10:07)
[2020-10-21] MEDS: NYSTATIN POWDER 100,000 UNITS/GM - 15 GM TOPICAL POWDER TP SCH ×2 (10:07→22:30)
[2020-10-21] MEDS: COLLAGENASE CLOSTRIDIUM HIST. 30 GRAMS TUBE TP SCH (10:07)
[2020-10-21] MEDS: SODIUM HYPOCHLORITE 0.25%- 473 ML BULK BOTTLE TP SCH (10:07)
[2020-10-21] MEDS: IBUPROFEN 400 MG TABLET (FP) PO PRN (14:40)
[2020-10-21] MEDS: DAPTOMYCIN 720 MG in SODIUM CHLORIDE 50 ML IVPB SCH (16:01)
[2020-10-22] MEDS: sitaGLIPtin PHOSPHATE 50 MG TABLET PO SCH (06:32)
[2020-10-22] MEDS: INSULIN SLIDING SCALE (NOVOLOG) 1 VIAL SQ SCH ×4 (06:32→21:42)
[2020-10-22] MEDS: INSULIN (LEVEMIR) 100 UNITS/ML UNITS SQ SCH ×2 (06:33→21:42)
[2020-10-22] MEDS: LISINOPRIL 20 MG TABLET PO SCH (10:10)
[2020-10-22] MEDS: AMINO ACIDS/PROTEIN HYDROLYS 30 ML LIQUID.PKT PO SCH ×3 (10:10→17:10)
[2020-10-22] MEDS: METOPROLOL TARTRATE 25 MG TABLET (FP) PO SCH ×2 (10:11→21:39)
[2020-10-22] MEDS: amLODIPine BESYLATE 5 MG TABLET (FP) PO SCH (10:11)
[2020-10-22] MEDS: LACTOBACILLUS ACIDOPHILUS 1 TABLET PO SCH (10:11)
[2020-10-22] MEDS: CLOPIDOGREL BISULFATE 75 MG TABLET (FP) PO SCH (10:11)
[2020-10-22] MEDS: SODIUM HYPOCHLORITE 0.25%- 473 ML BULK BOTTLE TP SCH (10:11)
[2020-10-22] MEDS: SOLIFENACIN SUCCINATE 5 MG TAB PO SCH (10:11)
[2020-10-22] MEDS: NYSTATIN POWDER 100,000 UNITS/GM - 15 GM TOPICAL POWDER TP SCH ×2 (10:12→21:44)
[2020-10-22] MEDS: COLLAGENASE CLOSTRIDIUM HIST. 30 GRAMS TUBE TP SCH (10:12)
[2020-10-22] MEDS: DAPTOMYCIN 720 MG in SODIUM CHLORIDE 50 ML IVPB SCH (17:10)
[2020-10-23] MEDS: INSULIN (LEVEMIR) 100 UNITS/ML UNITS SQ SCH ×2 (06:01→21:39)
[2020-10-23] MEDS: sitaGLIPtin PHOSPHATE 50 MG TABLET PO SCH (06:01)
[2020-10-23] MEDS: INSULIN SLIDING SCALE (NOVOLOG) 1 VIAL SQ SCH ×4 (06:02→21:38)
[2020-10-23] MEDS: AMINO ACIDS/PROTEIN HYDROLYS 30 ML LIQUID.PKT PO SCH ×3 (08:57→18:21)
[2020-10-23] MEDS: LACTOBACILLUS ACIDOPHILUS 1 TABLET PO SCH (09:18)
[2020-10-23] MEDS: CLOPIDOGREL BISULFATE 75 MG TABLET (FP) PO SCH (09:18)
[2020-10-23] MEDS: SOLIFENACIN SUCCINATE 5 MG TAB PO SCH (09:18)
[2020-10-23] MEDS: METOPROLOL TARTRATE 25 MG TABLET (FP) PO SCH ×2 (09:18→21:37)
[2020-10-23] MEDS: LISINOPRIL 20 MG TABLET PO SCH (09:18)
[2020-10-23] MEDS: NYSTATIN POWDER 100,000 UNITS/GM - 15 GM TOPICAL POWDER TP SCH ×2 (09:19→21:40)
[2020-10-23] MEDS: SODIUM HYPOCHLORITE 0.25%- 473 ML BULK BOTTLE TP SCH (09:19)
[2020-10-23] MEDS: COLLAGENASE CLOSTRIDIUM HIST. 30 GRAMS TUBE TP SCH (09:19)
[2020-10-23] MEDS: amLODIPine BESYLATE 5 MG TABLET (FP) PO SCH (09:19)
[2020-10-23] MEDS ORDERED: PT OWN MED DRAWER 7, Y5N ONE (15:40)
[2020-10-23] MEDS: DAPTOMYCIN 720 MG in SODIUM CHLORIDE 50 ML IVPB SCH (18:21)
[2020-10-24] MEDS: INSULIN (LEVEMIR) 100 UNITS/ML UNITS SQ SCH ×2 (06:03→21:07)
[2020-10-24] MEDS: sitaGLIPtin PHOSPHATE 50 MG TABLET PO SCH (06:03)
[2020-10-24] MEDS: INSULIN SLIDING SCALE (NOVOLOG) 1 VIAL SQ SCH ×4 (06:05→21:07)
[2020-10-24] MEDS: AMINO ACIDS/PROTEIN HYDROLYS 30 ML LIQUID.PKT PO SCH ×3 (08:10→18:28)
[2020-10-24] MEDS ORDERED: PT OWN MED DRAWER 7, Y5N ONE (09:11)
[2020-10-24] MEDS: LACTOBACILLUS ACIDOPHILUS 1 TABLET PO SCH (09:16)
[2020-10-24] MEDS: CLOPIDOGREL BISULFATE 75 MG TABLET (FP) PO SCH (09:17)
[2020-10-24] MEDS: LISINOPRIL 20 MG TABLET PO SCH (09:17)
[2020-10-24] MEDS: METOPROLOL TARTRATE 25 MG TABLET (FP) PO SCH ×2 (09:17→21:07)
[2020-10-24] MEDS: amLODIPine BESYLATE 5 MG TABLET (FP) PO SCH (09:17)
[2020-10-24] MEDS: COLLAGENASE CLOSTRIDIUM HIST. 30 GRAMS TUBE TP SCH (09:18)
[2020-10-24] MEDS: SOLIFENACIN SUCCINATE 5 MG TAB PO SCH (09:18)
[2020-10-24] MEDS: NYSTATIN POWDER 100,000 UNITS/GM - 15 GM TOPICAL POWDER TP SCH ×2 (09:18→21:08)
[2020-10-24] MEDS: traMADol HCL 50 MG TABLET PO PRN (11:09)
[2020-10-24] MEDS: SODIUM HYPOCHLORITE 0.25%- 473 ML BULK BOTTLE TP SCH (16:08)
[2020-10-24] MEDS: DAPTOMYCIN 720 MG in SODIUM CHLORIDE 50 ML IVPB SCH (16:08)
[2020-10-24] MEDS: IBUPROFEN 400 MG TABLET (FP) PO PRN (20:55)
[2020-10-25] MEDS: sitaGLIPtin PHOSPHATE 50 MG TABLET PO SCH (06:33)
[2020-10-25] MEDS: INSULIN (LEVEMIR) 100 UNITS/ML UNITS SQ SCH ×2 (06:38→21:26)
[2020-10-25] MEDS: INSULIN SLIDING SCALE (NOVOLOG) 1 VIAL SQ SCH ×4 (06:38→21:27)
[2020-10-25] MEDS ORDERED: INSULIN (NOVOLOG) ASPART 100 UNITS/ML 10ML VIAL ONE (06:56)
[2020-10-25] MEDS: METOPROLOL TARTRATE 25 MG TABLET (FP) PO SCH ×2 (09:50→21:26)
[2020-10-25] MEDS: AMINO ACIDS/PROTEIN HYDROLYS 30 ML LIQUID.PKT PO SCH ×3 (09:51→17:17)
[2020-10-25] MEDS: LISINOPRIL 20 MG TABLET PO SCH (09:52)
[2020-10-25] MEDS: CLOPIDOGREL BISULFATE 75 MG TABLET (FP) PO SCH (09:52)
[2020-10-25] MEDS: amLODIPine BESYLATE 5 MG TABLET (FP) PO SCH (09:53)
[2020-10-25] MEDS: traMADol HCL 50 MG TABLET PO PRN ×2 (09:53→21:27)
[2020-10-25] MEDS: LACTOBACILLUS ACIDOPHILUS 1 TABLET PO SCH (09:54)
[2020-10-25] MEDS: COLLAGENASE CLOSTRIDIUM HIST. 30 GRAMS TUBE TP SCH ×2 (09:54→10:15)
[2020-10-25] MEDS: SOLIFENACIN SUCCINATE 5 MG TAB PO SCH (09:57)
[2020-10-25] MEDS: NYSTATIN POWDER 100,000 UNITS/GM - 15 GM TOPICAL POWDER TP SCH ×2 (11:13→21:27)
[2020-10-25] MEDS: SODIUM HYPOCHLORITE 0.25%- 473 ML BULK BOTTLE TP SCH (11:13)
[2020-10-25] MEDS: DAPTOMYCIN 720 MG in SODIUM CHLORIDE 50 ML IVPB SCH (16:44)
[2020-10-26] MEDS: sitaGLIPtin PHOSPHATE 50 MG TABLET PO SCH (06:13)
[2020-10-26] MEDS: INSULIN SLIDING SCALE (NOVOLOG) 1 VIAL SQ SCH ×4 (06:13→21:34)
[2020-10-26] MEDS: INSULIN (LEVEMIR) 100 UNITS/ML UNITS SQ SCH ×2 (06:13→21:33)
[2020-10-26] MEDS ORDERED: INSULIN (NOVOLOG) ASPART 100 UNITS/ML 10ML VIAL ONE ×2 (06:19→11:12)
[2020-10-26] MEDS: AMINO ACIDS/PROTEIN HYDROLYS 30 ML LIQUID.PKT PO SCH ×3 (08:21→17:47)
[2020-10-26] MEDS ORDERED: PT OWN MED DRAWER 7, Y5N ONE ×2 (11:11→15:37)
[2020-10-26] MEDS: LACTOBACILLUS ACIDOPHILUS 1 TABLET PO SCH (11:14)
[2020-10-26] MEDS: METOPROLOL TARTRATE 25 MG TABLET (FP) PO SCH ×2 (11:15→21:33)
[2020-10-26] MEDS: amLODIPine BESYLATE 5 MG TABLET (FP) PO SCH (11:16)
[2020-10-26] MEDS: CLOPIDOGREL BISULFATE 75 MG TABLET (FP) PO SCH (11:17)
[2020-10-26] MEDS: SOLIFENACIN SUCCINATE 5 MG TAB PO SCH (11:18)
[2020-10-26] MEDS: LISINOPRIL 20 MG TABLET PO SCH (11:18)
[2020-10-26] MEDS: NYSTATIN POWDER 100,000 UNITS/GM - 15 GM TOPICAL POWDER TP SCH ×2 (11:18→21:34)
[2020-10-26] MEDS: ACETAMINOPHEN 325 MG TABLET (FP) PO PRN ×2 (15:12→21:32)
[2020-10-26] MEDS ORDERED: traMADol HCL 50 MG TABLET PO PRN (15:17)
[2020-10-26] MEDS: DAPTOMYCIN 720 MG in SODIUM CHLORIDE 50 ML IVPB SCH (15:48)
[2020-10-26] MEDS: COLLAGENASE CLOSTRIDIUM HIST. 30 GRAMS TUBE TP SCH (17:00)
[2020-10-26] MEDS: SODIUM HYPOCHLORITE 0.25%- 473 ML BULK BOTTLE TP SCH (17:00)
[2020-10-27] MEDS: INSULIN SLIDING SCALE (NOVOLOG) 1 VIAL SQ SCH ×4 (06:01→21:23)
[2020-10-27] MEDS: sitaGLIPtin PHOSPHATE 50 MG TABLET PO SCH (06:02)
[2020-10-27] MEDS: INSULIN (LEVEMIR) 100 UNITS/ML UNITS SQ SCH ×2 (06:02→21:22)
[2020-10-27] MEDS: AMINO ACIDS/PROTEIN HYDROLYS 30 ML LIQUID.PKT PO SCH ×3 (08:16→17:49)
[2020-10-27] MEDS ORDERED: PT OWN MED DRAWER 7, Y5N ONE (09:56)
[2020-10-27] MEDS: LACTOBACILLUS ACIDOPHILUS 1 TABLET PO SCH (10:06)
[2020-10-27] MEDS: CLOPIDOGREL BISULFATE 75 MG TABLET (FP) PO SCH (10:07)
[2020-10-27] MEDS: amLODIPine BESYLATE 5 MG TABLET (FP) PO SCH (10:07)
[2020-10-27] MEDS: METOPROLOL TARTRATE 25 MG TABLET (FP) PO SCH ×2 (10:07→21:22)
[2020-10-27] MEDS: LISINOPRIL 20 MG TABLET PO SCH (10:07)
[2020-10-27] MEDS: SOLIFENACIN SUCCINATE 5 MG TAB PO SCH (10:07)
[2020-10-27] MEDS: NYSTATIN POWDER 100,000 UNITS/GM - 15 GM TOPICAL POWDER TP SCH ×2 (10:08→21:23)
[2020-10-27] MEDS: COLLAGENASE CLOSTRIDIUM HIST. 30 GRAMS TUBE TP SCH (15:33)
[2020-10-27] MEDS: SODIUM HYPOCHLORITE 0.25%- 473 ML BULK BOTTLE TP SCH (15:33)
[2020-10-27] MEDS: DAPTOMYCIN 720 MG in SODIUM CHLORIDE 50 ML IVPB SCH (16:00)
[2020-10-28] MEDS: sitaGLIPtin PHOSPHATE 50 MG TABLET PO SCH (06:09)
[2020-10-28] MEDS: INSULIN SLIDING SCALE (NOVOLOG) 1 VIAL SQ SCH ×3 (06:10→17:56)
[2020-10-28] MEDS: INSULIN (LEVEMIR) 100 UNITS/ML UNITS SQ SCH (06:10)
[2020-10-28] MEDS: AMINO ACIDS/PROTEIN HYDROLYS 30 ML LIQUID.PKT PO SCH ×3 (08:41→18:12)
[2020-10-28] MEDS: METOPROLOL TARTRATE 25 MG TABLET (FP) PO SCH (09:25)
[2020-10-28] MEDS: SOLIFENACIN SUCCINATE 5 MG TAB PO SCH (09:26)
[2020-10-28] MEDS: SODIUM HYPOCHLORITE 0.25%- 473 ML BULK BOTTLE TP SCH (09:26)
[2020-10-28] MEDS: COLLAGENASE CLOSTRIDIUM HIST. 30 GRAMS TUBE TP SCH (09:26)
[2020-10-28] MEDS: NYSTATIN POWDER 100,000 UNITS/GM - 15 GM TOPICAL POWDER TP SCH (09:26)
[2020-10-28] MEDS: LACTOBACILLUS ACIDOPHILUS 1 TABLET PO SCH (09:26)
[2020-10-28] MEDS: amLODIPine BESYLATE 5 MG TABLET (FP) PO SCH (09:26)
[2020-10-28] MEDS: LISINOPRIL 20 MG TABLET PO SCH (09:26)
[2020-10-28] MEDS: CLOPIDOGREL BISULFATE 75 MG TABLET (FP) PO SCH (09:26)
[2020-10-28 14:11] VITALS: BP 127/65; PULSE 76; TEMP 98.7
[2020-10-28] MEDS: IBUPROFEN 400 MG TABLET (FP) PO PRN (15:51)
[2020-10-28] MEDS: DAPTOMYCIN 720 MG in SODIUM CHLORIDE 50 ML IVPB SCH (15:51)
== END 2020-10-28 21:45 | DRG 871 ==
LOC: JER 16:24 → JERBED 20:47 → J8W 23:50
PROVIDERS: ADMIT Internal Medicine; ATTEND Internal Medicine
DX: A41.02 Sepsis due to Methicillin resistant Staphylococcus aureus (principal); L89.153 Pressure ulcer of sacral region, stage 3; N39.0 Urinary tract infection, site not specified; I10 Essential (primary) hypertension; L89.152 Pressure ulcer of sacral region, stage 2; R21 Rash and other nonspecific skin eruption; L03.031 Cellulitis of right toe; S91.209A Unspecified open wound of unspecified toe(s) with damage to nail, initial encounter; E11.65 Type 2 diabetes mellitus with hyperglycemia; E11.621 Type 2 diabetes mellitus with foot ulcer; L97.519 Non-pressure chronic ulcer of other part of right foot with unspecified severity; Z88.0 Allergy status to penicillin; E11.51 Type 2 diabetes mellitus with diabetic peripheral angiopathy without gangrene; E66.9 Obesity, unspecified; Z68.29 Body mass index [BMI] 29.0-29.9, adult; M17.11 Unilateral primary osteoarthritis, right knee; E88.09 Other disorders of plasma-protein metabolism, not elsewhere classified; Z20.822 Contact with and (suspected) exposure to COVID-19; W19.XXXA Unspecified fall, initial encounter; Y93.89 Activity, other specified; Y92.009 Unspecified place in unspecified non-institutional (private) residence as the place of occurrence of the external cause; Y99.8 Other external cause status; Z79.4 Long term (current) use of insulin
CPT/HCPCS: 36415; 36569; 71045-TC-FY; 73502-TC-LT-FY; 73564-TC-RT-FY; 73630-TC-RT-FY; 75820-TC-FY; 77001-TC-FY; 80048; 80053; 80061; 81003; 82550; 82803; 82962; 83036; 83605; 83735; 84100; 84443; 84484; 84550; 85025; 85027; 85610; 85730; 87040; 87077; 87086; 87186; 93005; 93010; 93306-TC; 97116-GP; 97162-GP; 99291; C1751; C9803; G0480; J0131; J0878; U0003; U0005

== ENCOUNTER 2024-06-23 14:11 | Inpatient (IN) | payer BC, OTHER ==
[2024-06-23] MEDS: LACTATED RINGERS SOLUTION 1000 ML INFUS.BAG IV ONE ×2 (15:24→20:00)
[2024-06-23 16:56] LABS: MCHC 28.6 g/dl (32.2-35.5); MEAN CELL VOLUME 98.6 fl (79.4-94.8); MEAN PLT VOLUME 10.5 fl (9.4-12.3); PLATELET COUNT 676 x10^3/uL (182-369)
[2024-06-23] MEDS: SODIUM CHLORIDE 0.9% 500 ML INFUS.BAG IV ONE (16:58)
[2024-06-23 16:59] LABS: VENOUS BASE EXCESS -24.5 mmol/L (-2-2); VENOUS O2 SATURATION 73.4 % (70-80); VENOUS PCO2 26.9 mmHg (38-52)
[2024-06-23] MEDS ORDERED: CEFEPIME HCL/D5W 2 GM/50 ML BAG IVPB ONE (17:15)
[2024-06-23 17:19] LABS: CHLORIDE 92 mmol/L (98-107); POTASSIUM 5.6 mmol/L (3.5-5.1); SODIUM 129 mmol/L (136-145)
[2024-06-23 17:21] LABS: ANION GAP 29 mmol/L (4-13); BLOOD UREA NITROGEN 91.2 mg/dL (7-18); CO2 8 mmol/L (21-32); MAGNESIUM 2.8 mg/dL (1.8-2.4)
[2024-06-23 17:22] LABS: VENOUS PH 6.972 (7.310-7.410)
[2024-06-23 17:24] LABS: CREATININE 2.3 mg/dL (0.55-1.3)
[2024-06-23 17:25] LABS: PHOSPHOROUS 8.9 mg/dL (2.5-4.9); SGOT/AST 11 U/L (15-37); SGPT/ALT 11 U/L (13-61)
[2024-06-23 17:26] LABS: BILIRUBIN,TOTAL 0.6 mg/dL (0.2-1); TOT PROT 6.3 g/dl (6.4-8.2)
[2024-06-23 17:27] LABS: ALK PHOS 192 U/L (45-117)
[2024-06-23 17:30] LABS: GLUCOSE,RANDOM 1096 mg/dL (74-106)
[2024-06-23] MEDS: CEFEPIME HCL 2 GM VIAL (RESTRICTED TO ID) IVPB ONE (17:36)
[2024-06-23] MEDS ORDERED: INSULIN REGULAR HUMAN 100 UNITS/ML *VIAL ONE ×3 (17:49→23:53)
[2024-06-23] MEDS ORDERED: VANCOMYCIN 1 GM PREMIX (F) 1 GM/200 ML BAG ONE (17:54)
[2024-06-23] MEDS: VANCOMYCIN 1,000 MG in DEXTROSE 5%-WATER - 250 ML IVPB ONE (18:05)
[2024-06-23] MEDS: INSULIN REGULAR 100 UNITS in SODIUM CHLORIDE 99 ML IVPB SCH ×2 (18:27→21:10)
[2024-06-23] MEDS: INSULIN REGULAR HUMAN 100 UNITS/ML *VIAL* (FOR IVP) IVPUSH ONE (18:28)
[2024-06-23] MEDS ORDERED: NOREPINEPHRINE BITARTRATE 4 MG/4 ML ML IV ONE (19:30)
[2024-06-23] MEDS: NOREPINEPHRINE BITARTRATE 4,000 MCG in DEXTROSE 5%-WATER - 496 ML IV SCH (19:49)
[2024-06-23 20:42] LABS: URINE APPEARANCE TURBID; URINE BILIRUBIN NEGATIVE (NEGATIVE); URINE COLOR YELLOW; URINE GLUCOSE (UA) 500 mg/dl (NEGATIVE); URINE KETONE 40 mg/dl (NEGATIVE); URINE LEUK ESTERASE 4+ (NEGATIVE); URINE NITRITE NEGATIVE (NEGATIVE); URINE PROTEIN 300 (NEGATIVE); URINE UROBILINOGEN 0.2 mg/dL (0.2-1.0)
[2024-06-23 20:43] LABS: EPI CELLS 73.7 /uL (0-25.1); HYALINE CASTS 751.86 /uL (0-3.1); URINE BACTERIA 148.3 /uL (0-1359); URINE RBC 330.7 /uL (0-23.9); URINE WBC 12469.9 /uL (0-25.8)
[2024-06-23] MEDS ORDERED: INSULIN REGULAR 100 UNITS in SODIUM CHLORIDE 99 ML IVPB SCH (21:52)
[2024-06-23 21:53] LABS: VENOUS BASE EXCESS -22.3 mmol/L (-2-2); VENOUS O2 SATURATION 84.3 % (70-80); VENOUS PCO2 35.7 mmHg (38-52)
[2024-06-23 21:58] LABS: VENOUS PH 6.989 (7.310-7.410)
[2024-06-23 22:14] LABS: CHLORIDE 104 mmol/L (98-107); SODIUM 136 mmol/L (136-145)
[2024-06-23 22:16] LABS: ANION GAP 22 mmol/L (4-13); BLOOD UREA NITROGEN 84.2 mg/dL (7-18); CO2 10 mmol/L (21-32)
[2024-06-23 22:19] LABS: CALCIUM 8.4 mg/dL (8.5-10.1); CREATININE 2.1 mg/dL (0.55-1.3); PHOSPHOROUS 6.1 mg/dL (2.5-4.9)
[2024-06-23] MEDS: CHLORHEXIDINE GLUCONATE 4% CLEANSER FOR DECOLONIZATION TP SCH (22:28)
[2024-06-23] MEDS: LACTATED RINGERS SOLUTION 1,000 ML/1,000 ML INFUS.BAG IV SCH (22:28)
[2024-06-23] MEDS: MUPIROCIN 2% TOPICAL OINTMENT FOR DECOLONIZATION NS SCH (22:31)
[2024-06-23] MEDS: MICONAZOLE NITRATE 28 GM TUBE TP SCH (22:31)
[2024-06-23] MEDS: NOREPINEPHRINE 0.9 % NACL 8 MG/250 ML BAG IVPB SCH (22:31)
[2024-06-23 22:32] LABS: GLUCOSE,RANDOM 806 mg/dL (74-106)
[2024-06-23] MEDS ORDERED: VASopressin 20 UNITS/ML VIAL IV ONE (23:15)
[2024-06-23] MEDS: HYDROCORTISONE SOD SUCCINATE 100 MG/2 ML VIAL IVPUSH SCH (23:28)
[2024-06-24] MEDS: INSULIN (NOVOLOG) ASPART 100 UNITS/ML 10ML VIAL SQ ONE (00:05)
[2024-06-24] MEDS: VASopressin 40 UNITS/100 ML BAG IV SCH (01:00)
[2024-06-24 02:12] LABS: VENOUS BASE EXCESS -15.3 mmol/L (-2-2); VENOUS O2 SATURATION 52.9 % (70-80); VENOUS PCO2 43.9 mmHg (38-52)
[2024-06-24 02:18] LABS: VENOUS PH 7.111 (7.310-7.410)
[2024-06-24 02:24] LABS: CHLORIDE 108 mmol/L (98-107); POTASSIUM 3.8 mmol/L (3.5-5.1); SODIUM 139 mmol/L (136-145)
[2024-06-24 02:25] LABS: ANION GAP 16 mmol/L (4-13); CALCIUM 8.2 mg/dL (8.5-10.1); CO2 16 mmol/L (21-32)
[2024-06-24 02:26] LABS: BLOOD UREA NITROGEN 84.4 mg/dL (7-18)
[2024-06-24 02:41] LABS: GLUCOSE,RANDOM 535 mg/dL (74-106)
[2024-06-24 03:28] LABS: ARTERIAL BLD GAS O2 SATURATION 95.5 % (95-98); ARTERIAL BLOOD GAS BASE EXCESS -13.1 mmol/L (-2-2); ARTERIAL BLOOD GAS PO2 94.5 mmHg (80-100)
[2024-06-24 03:29] LABS: ARTERIAL BLOOD GAS pH 7.187 (7.350-7.450)
[2024-06-24] MEDS: KCL 20 MEQ PREMIX BAG 20 MEQ/100 ML INFUS.BAG IVPB ONE (03:57)
[2024-06-24] MEDS: HEPARIN NA (PORCINE) 5,000 UNITS/ML 1ML VIAL SQ SCH (05:58)
[2024-06-24 06:32] LABS: HEMATOCRIT 34.5 % (34.1-44.9); HEMOGLOBIN 11.4 g/dL (11.2-15.7); MEAN PLT VOLUME 9.6 fl (9.4-12.3); PLATELET COUNT 341 x10^3/uL (182-369); RDW 14.5 % (12.4-16.6)
[2024-06-24 06:57] LABS: POTASSIUM 4.1 mmol/L (3.5-5.1)
[2024-06-24 07:01] LABS: BLOOD UREA NITROGEN 81.4 mg/dL (7-18); CALCIUM 8.1 mg/dL (8.5-10.1); MAGNESIUM 1.5 mg/dL (1.8-2.4)
[2024-06-24 07:05] LABS: CREATININE 1.9 mg/dL (0.55-1.3); PHOSPHOROUS 3.5 mg/dL (2.5-4.9)
[2024-06-24 07:06] LABS: BILIRUBIN,TOTAL 0.2 mg/dL (0.2-1)
[2024-06-24 07:14] LABS: ALBUMIN 1.5 g/dl (3.4-5.0)
[2024-06-24] MEDS: MAGNESIUM 2GM/50ML STERILE WATER IVPB IVPB ONE (08:01)
[2024-06-24] MEDS: CEFEPIME 2 GM in DEXTROSE 5%-WATER 100 ML IVPB SCH (09:21)
[2024-06-24] MEDS: PANTOPRAZOLE SODIUM 40 MG VIAL IVPUSH SCH (09:22)
[2024-06-24] MEDS ORDERED: CEFEPIME HCL 1 GM VIAL (RESTRICTED TO ID) IVPB SCH (10:00)
[2024-06-24] MEDS: VANCOMYCIN/WATER 1250 MG 1,250 MG/250 ML BAG IVPB SCH (10:07)
[2024-06-24] MEDS: DEXTROSE 5%-LACTATED RINGERS 1,000 ML IV SCH (10:19)
[2024-06-24] MEDS: CEFEPIME HCL 1 GM VIAL (RESTRICTED TO ID) IVPB SCH (11:53)
[2024-06-24] MEDS ORDERED: INSULIN GLARGINE (LANTUS) 100 UNITS/ML UNITS SQ ONE (12:36)
[2024-06-24] MEDS: LACTATED RINGERS SOLUTION 1,000 ML/1,000 ML INFUS.BAG IV SCH (12:42)
[2024-06-24] MEDS: INSULIN GLARGINE (LANTUS) 100 UNITS/ML UNITS SQ SCH (12:42)
[2024-06-24] MEDS: INSULIN (LEVEMIR) 100 UNITS/ML UNITS SQ SCH (13:08)
[2024-06-24] MEDS: INSULIN ASPART SLIDING SCALE (NOVOLOG) 1 VIAL SQ SCH (17:26)
[2024-06-24] MEDS: CEFEPIME 1 GM in DEXTROSE 5%-WATER 100 ML IVPB SCH (17:42)
[2024-06-24] MEDS: VANCOMYCIN HCL IN 5 % DEXTROSE 1,250 MG/250 ML BAG IV SCH (20:22)
[2024-06-25] MEDS: CASPOFUNGIN ACETATE 50 MG in SODIUM CHLORIDE 250 ML IVPB ONE (04:24)
[2024-06-25 07:00] LABS: HEMATOCRIT 31.1 % (34.1-44.9); HEMOGLOBIN 10.2 g/dL (11.2-15.7); MCHC 32.8 g/dl (32.2-35.5); MEAN CELL VOLUME 84.7 fl (79.4-94.8); MEAN PLT VOLUME 11.7 fl (9.4-12.3); PLATELET COUNT 108 x10^3/uL (182-369); RDW 14.3 % (12.4-16.6)
[2024-06-25 07:17] LABS: POTASSIUM 3.6 mmol/L (3.5-5.1)
[2024-06-25 07:20] LABS: CALCIUM 7.6 mg/dL (8.5-10.1)
[2024-06-25 07:21] LABS: BLOOD UREA NITROGEN 71.3 mg/dL (7-18); MAGNESIUM 1.9 mg/dL (1.8-2.4)
[2024-06-25 07:24] LABS: CREATININE 1.3 mg/dL (0.55-1.3); PHOSPHOROUS 2.4 mg/dL (2.5-4.9)
[2024-06-25] MEDS: INSULIN GLARGINE (LANTUS) 100 UNITS/ML UNITS SQ ONE (08:25)
[2024-06-25] MEDS: INSULIN GLARGINE (LANTUS) 100 UNITS/ML UNITS SQ SCH (09:16)
[2024-06-25] MEDS: POTASSIUM PHOSPHATE 15 MM in SODIUM CHLORIDE 100 ML IVPB ONE (10:46)
[2024-06-25] MEDS: VANCOMYCIN/WATER 1250 MG 1,250 MG/250 ML BAG IVPB SCH (15:55)
[2024-06-25] MEDS: ACETAMINOPHEN 1000 MG/100 ML BAG IVPB ONE (17:12)
[2024-06-25] MEDS: LACTATED RINGERS SOLUTION 1,000 ML/1,000 ML INFUS.BAG IV SCH (17:13)
[2024-06-26 04:31] LABS: EPI CELLS 13 /uL (0-25.1); HYALINE CASTS 1 /uL (0-3.1); PH,URINE 5.5 (5.0-8.0); URINE APPEARANCE CLOUDY; URINE BACTERIA 16 /uL (0-1359); URINE BILIRUBIN NEGATIVE (NEGATIVE); URINE COLOR YELLOW; URINE GLUCOSE (UA) NEGATIVE (NEGATIVE); URINE KETONE NEGATIVE (NEGATIVE); URINE LEUK ESTERASE 1+ (NEGATIVE); URINE NITRITE NEGATIVE (NEGATIVE); URINE PROTEIN 1+ (NEGATIVE); URINE RBC 32 /uL (0-23.9); URINE UROBILINOGEN 0.2 mg/dL (0.2-1.0); URINE WBC 188 /uL (0-25.8)
[2024-06-26 06:47] LABS: HEMATOCRIT 32.8 % (34.1-44.9); HEMOGLOBIN 10.5 g/dL (11.2-15.7)
[2024-06-26 06:48] LABS: MEAN CELL VOLUME 86.8 fl (79.4-94.8); PLATELET COUNT 136 x10^3/uL (182-369); RDW 14.7 % (12.4-16.6)
[2024-06-26 06:51] LABS: POTASSIUM 3.8 mmol/L (3.5-5.1)
[2024-06-26 06:54] LABS: CALCIUM 7.9 mg/dL (8.5-10.1)
[2024-06-26 06:55] LABS: MAGNESIUM 1.7 mg/dL (1.8-2.4)
[2024-06-26 06:58] LABS: BILIRUBIN,TOTAL 0.2 mg/dL (0.2-1); CREATININE 1.2 mg/dL (0.55-1.3); TOT PROT 4.6 g/dl (6.4-8.2)
[2024-06-26] MEDS: FUROSEMIDE 40 MG/4 ML INJECTABLE VIAL IVPUSH ONE (07:02)
[2024-06-26] MEDS: INSULIN GLARGINE (LANTUS) 100 UNITS/ML UNITS SQ ONE (07:03)
[2024-06-26] MEDS: MAGNESIUM SULFATE IN WATER 2 GM/50 ML IVPB IVPB ONE (07:04)
[2024-06-26 07:06] LABS: ALBUMIN 1.2 g/dl (3.4-5.0)
[2024-06-26 07:55] LABS: YEAST NONE SEEN (NEGATIVE)
[2024-06-26] MEDS: MAGNESIUM SULF 50% (8.12 MEQ/2 ML-1 GM VIAL) IVPB ONE (08:17)
[2024-06-26] MEDS: MEROPENEM 1 GM in DEXTROSE 5%-WATER 100 ML IVPB SCH (10:52)
[2024-06-26 12:02] LABS: INR 1.37 (0.83-1.09); PROTHROMBIN TIME (PATIENT) 14.9 SEC (9.7-13.0)
[2024-06-26] MEDS: CASPOFUNGIN ACETATE 50 MG in SODIUM CHLORIDE 250 ML IVPB SCH (12:16)
[2024-06-26 12:29] LABS: ARTERIAL BLOOD GAS BASE EXCESS -7.8 mmol/L (-2-2); ARTERIAL BLOOD GAS PO2 114.2 mmHg (80-100); ARTERIAL BLOOD GAS pH 7.348 (7.350-7.450)
[2024-06-26 12:30] LABS: ALLENS TEST POSITIVE
[2024-06-26] MEDS ORDERED: RAPID SEQUENCE INTUBATION KIT NR ONE (13:10)
[2024-06-26] MEDS ORDERED: PROPOFOL 1,000,000 MCG/100 ML VIAL ONE (13:15)
[2024-06-26] MEDS ORDERED: MIDAZOLAM HCL 5 MG/1 ML Single Dose Vial ONE (13:17)
[2024-06-26] MEDS ORDERED: NOREPINEPHRINE BITARTRATE 4 MG/4 ML ML IV ONE (13:25)
[2024-06-26] MEDS ORDERED: MAGNESIUM SULF 50% (8.12 MEQ/2 ML-1 GM VIAL) ONE (13:25)
[2024-06-26] MEDS ORDERED: SUCCINYLCHOLINE CHLORIDE 200 MG/10 ML SYRINGE ONE (13:27)
[2024-06-26] MEDS ORDERED: SODIUM CHLORIDE 0.9% P/F 10 ML VIAL IJ ONE ×2 (13:31→13:34)
[2024-06-26] MEDS ORDERED: EPINEPHrine 1:1000 P/F - 1 MG/ML AMP ONE (13:32)
[2024-06-26] MEDS ORDERED: MIDAZOLAM HCL 2 MG/2 ML SINGLE DOSE VIAL ONE (13:36)
[2024-06-26] MEDS ORDERED: SODIUM BICARBONATE 8.4% 50 MEQ/50 ML DISP.SYRIN ONE (13:39)
[2024-06-26] MEDS ORDERED: ROCURONIUM BROMIDE 50 MG/5 ML SYRINGE ONE ×2 (13:39→16:16)
[2024-06-26] MEDS ORDERED: CALCIUM CHLORIDE 1 GM/10 ML *DISP.SYRIN ONE ×2 (13:39→15:23)
[2024-06-26] MEDS ORDERED: ESMOLOL HCL 100,000 MCG/10 ML VIAL ONE (13:40)
[2024-06-26] MEDS ORDERED: LIDOCAINE HCL/PF 2% SDV 5ML VIAL ONE (13:43)
[2024-06-26] MEDS ORDERED: BUPIVACAINE HCL/PF 0.25% (2.5MG/ML) 10 ML VIAL ONE (14:04)
[2024-06-26] MEDS: MIDAZOLAM HCL 5 MG/1 ML Single Dose Vial IVPUSH ONE (14:09)
[2024-06-26] MEDS: PROPOFOL 1,000,000 MCG/100 ML VIAL IVPB SCH (14:30)
[2024-06-26] MEDS: ALBUMIN HUMAN 5% 500 ML IV SOLUTION IV ONE ×4 (15:20→20:13)
[2024-06-26] MEDS: BUPIVACAINE HCL/PF 2.5 MG/ML - 30 ML VIAL IJ ONE (15:40)
[2024-06-26] MEDS ORDERED: INDOCYANINE GREEN 25 MG/10 ML VIAL IVPUSH ONE (16:22)
[2024-06-26 16:26] LABS: ARTERIAL BLD GAS O2 SATURATION 98.2 % (95-98); ARTERIAL BLOOD GAS BASE EXCESS -13.7 mmol/L (-2-2); ARTERIAL BLOOD GAS PO2 147.6 mmHg (80-100)
[2024-06-26 16:43] LABS: ARTERIAL BLOOD GAS pH 7.129 (7.350-7.450)
[2024-06-26 17:34] LABS: ARTERIAL BLD GAS O2 SATURATION 92.5 % (95-98); ARTERIAL BLOOD GAS BASE EXCESS -11.9 mmol/L (-2-2); ARTERIAL BLOOD GAS PO2 77.6 mmHg (80-100)
[2024-06-26 17:39] LABS: ARTERIAL BLOOD GAS pH 7.194 (7.350-7.450)
[2024-06-26] MEDS: SODIUM BICARBONATE 8.4% - 150 MEQ in DEXTROSE 5%-WATER - 950 ML IVPB ONE (18:17)
[2024-06-26] MEDS: SODIUM BICARBONATE 8.4% 50 MEQ/50 ML VIAL IV SCH (20:14)
[2024-06-26] MEDS ORDERED: CHLORHEXIDINE GLUCONATE 4% CLEANSER FOR DECOLONIZATION TP SCH (22:00)
[2024-06-26] MEDS ORDERED: MUPIROCIN 2% TOPICAL OINTMENT FOR DECOLONIZATION NS SCH (22:00)
[2024-06-26] MEDS: SODIUM BICARBONATE 8.4% - 150 MEQ in DEXTROSE 5%-WATER - 950 ML IVPB SCH (23:24)
[2024-06-27 05:41] LABS: ARTERIAL BLD GAS O2 SATURATION 99.3 % (95-98); ARTERIAL BLOOD GAS BASE EXCESS -4.4 mmol/L (-2-2); ARTERIAL BLOOD GAS PO2 196.6 mmHg (80-100); ARTERIAL BLOOD GAS pH 7.356 (7.350-7.450)
[2024-06-27 05:42] LABS: ALLENS TEST POSITIVE
[2024-06-27 05:43] LABS: PT'S TEMP 100.2; VENT MODE A/C; VENT RATE 12
[2024-06-27 06:04] LABS: INR 1.4 (0.83-1.09); PROTHROMBIN TIME (PATIENT) 15.3 SEC (9.7-13.0)
[2024-06-27 06:12] LABS: HEMATOCRIT 27.3 % (34.1-44.9); HEMOGLOBIN 8.6 g/dL (11.2-15.7); MCHC 31.5 g/dl (32.2-35.5); MEAN CELL VOLUME 87.5 fl (79.4-94.8); MEAN PLT VOLUME 11.4 fl (9.4-12.3); PLATELET COUNT 98 x10^3/uL (182-369); RDW 15.7 % (12.4-16.6)
[2024-06-27 06:15] LABS: POTASSIUM 3.4 mmol/L (3.5-5.1)
[2024-06-27 06:18] LABS: CALCIUM 7.5 mg/dL (8.5-10.1)
[2024-06-27 06:20] LABS: BLOOD UREA NITROGEN 50.7 mg/dL (7-18); MAGNESIUM 2.2 mg/dL (1.8-2.4)
[2024-06-27 06:22] LABS: CREATININE 1.2 mg/dL (0.55-1.3); PHOSPHOROUS 2.9 mg/dL (2.5-4.9)
[2024-06-27 06:23] LABS: BILIRUBIN,TOTAL 0.3 mg/dL (0.2-1)
[2024-06-27 06:24] LABS: TOT PROT 4.4 g/dl (6.4-8.2)
[2024-06-27 06:34] LABS: ALBUMIN 1.7 g/dl (3.4-5.0)
[2024-06-27] MEDS: LACTATED RINGERS SOLUTION 1,000 ML/1,000 ML INFUS.BAG IV SCH (11:09)
[2024-06-27] MEDS: MEROPENEM 1 GM in DEXTROSE 5%-WATER 100 ML IVPB SCH ×2 (15:01→17:38)
[2024-06-27] MEDS: ACETAMINOPHEN 1000 MG/100 ML BAG IVPB PRN (15:34)
[2024-06-27 16:00] VITALS: BMI 34.8
[2024-06-27] MEDS: HEPARIN - 25,000 UNIT in SODIUM CHLORIDE 495 ML IV SCH (16:06)
[2024-06-27] MEDS: DEXTROSE 50%-WATER 25 GM/50 ML DISP.SYRIN IVPUSH PRN (21:52)
[2024-06-27 22:58] LABS: INR 1.46 (0.83-1.09); PROTHROMBIN TIME (PATIENT) 16.1 SEC (9.7-13.0)
[2024-06-27 23:00] LABS: ACTIVATED PTT 95.2 SECONDS (25.2-36.5)
[2024-06-28] MEDS ORDERED: DEXTROSE 50%-WATER 25 GM/50 ML DISP.SYRIN ONE (06:32)
[2024-06-28 06:44] LABS: HEMATOCRIT 28.1 % (34.1-44.9); HEMOGLOBIN 8.9 g/dL (11.2-15.7); MCHC 31.7 g/dl (32.2-35.5); MEAN CELL VOLUME 85.4 fl (79.4-94.8); MEAN PLT VOLUME 11.8 fl (9.4-12.3); PLATELET COUNT 66 x10^3/uL (182-369); RDW 15.6 % (12.4-16.6)
[2024-06-28 06:50] LABS: ARTERIAL BLD GAS O2 SATURATION 93.2 % (95-98); ARTERIAL BLOOD GAS PO2 59.5 mmHg (80-100); ARTERIAL BLOOD GAS pH 7.504 (7.350-7.450)
[2024-06-28 06:51] LABS: INR 1.4 (0.83-1.09); PROTHROMBIN TIME (PATIENT) 15.4 SEC (9.7-13.0)
[2024-06-28 06:54] LABS: ALLENS TEST POSITIVE
[2024-06-28 06:55] LABS: VENT MODE A/C
[2024-06-28 06:56] LABS: VENT RATE 12
[2024-06-28 07:11] LABS: ACTIVATED PTT 95.8 SECONDS (25.2-36.5)
[2024-06-28] MEDS ORDERED: DEXTROSE 50%-WATER - 25 GM/50 ML VIAL IVPUSH PRN (07:18)
[2024-06-28 07:49] LABS: CHLORIDE 114 mmol/L (98-107); SODIUM 147 mmol/L (136-145)
[2024-06-28 07:51] LABS: CALCIUM 7.3 mg/dL (8.5-10.1)
[2024-06-28 07:52] LABS: ALBUMIN 1.5 g/dl (3.4-5.0); BLOOD UREA NITROGEN 42.1 mg/dL (7-18); CO2 24 mmol/L (21-32); MAGNESIUM 2.1 mg/dL (1.8-2.4)
[2024-06-28 07:55] LABS: PHOSPHOROUS 1.5 mg/dL (2.5-4.9); SGOT/AST 18 U/L (15-37); SGPT/ALT 12 U/L (13-61)
[2024-06-28 07:56] LABS: TOT PROT 4.6 g/dl (6.4-8.2)
[2024-06-28 07:57] LABS: BILIRUBIN,TOTAL 0.5 mg/dL (0.2-1)
[2024-06-28 07:58] LABS: ALK PHOS 238 U/L (45-117)
[2024-06-28 08:14] LABS: ANION GAP 9 mmol/L (4-13); POTASSIUM 2.6 mmol/L (3.5-5.1)
[2024-06-28 08:17] LABS: GLUCOSE,RANDOM 32 mg/dL (74-106)
[2024-06-28] MEDS: DEXTROSE 5%-LACTATED RINGERS 1,000 ML IV SCH (08:33)
[2024-06-28] MEDS: KCL 20 MEQ PREMIX BAG 20 MEQ/100 ML INFUS.BAG IVPB SCH ×2 (09:39→17:25)
[2024-06-28] MEDS: MUPIROCIN 2% TOPICAL OINTMENT FOR DECOLONIZATION NS SCH (10:47)
[2024-06-28] MEDS: MICONAZOLE NITRATE 28 GM TUBE TP SCH (10:47)
[2024-06-28] MEDS: PANTOPRAZOLE SODIUM 40 MG VIAL IVPUSH SCH (10:47)
[2024-06-28] MEDS: CASPOFUNGIN ACETATE 50 MG in SODIUM CHLORIDE 250 ML IVPB SCH (10:47)
[2024-06-28] MEDS: PROPOFOL 1,000,000 MCG/100 ML VIAL IVPB SCH (11:12)
[2024-06-28] MEDS: NOREPINEPHRINE 0.9 % NACL 8 MG/250 ML BAG IVPB SCH (11:13)
[2024-06-28] MEDS: INSULIN ASPART SLIDING SCALE (NOVOLOG) 1 VIAL SQ SCH (11:33)
[2024-06-28] MEDS: VASopressin 40 UNITS/100 ML BAG IV SCH (12:00)
[2024-06-28 15:38] LABS: POTASSIUM 3.4 mmol/L (3.5-5.1)
[2024-06-28 15:39] LABS: BLOOD UREA NITROGEN 38.1 mg/dL (7-18); CALCIUM 7.3 mg/dL (8.5-10.1)
[2024-06-28] MEDS: VANCOMYCIN HCL IN 5 % DEXTROSE 1,250 MG/250 ML BAG IV SCH (21:18)
[2024-06-28] MEDS: CHLORHEXIDINE GLUCONATE 4% CLEANSER FOR DECOLONIZATION TP SCH (21:20)
[2024-06-28] MEDS: INSULIN GLARGINE (LANTUS) 100 UNITS/ML UNITS SQ SCH (21:29)
[2024-06-29 06:03] LABS: ARTERIAL BLD GAS O2 SATURATION 96.8 % (95-98); ARTERIAL BLOOD GAS BASE EXCESS 2.1 mmol/L (-2-2); ARTERIAL BLOOD GAS PO2 78.9 mmHg (80-100)
[2024-06-29 06:05] LABS: ALLENS TEST POSITIVE
[2024-06-29 06:07] LABS: VENT MODE A/C; VENT RATE 12
[2024-06-29 06:38] LABS: HEMATOCRIT 24.8 % (34.1-44.9); MCHC 32.3 g/dl (32.2-35.5); MEAN CELL VOLUME 85.8 fl (79.4-94.8); PLATELET COUNT 87 x10^3/uL (182-369); RDW 15.6 % (12.4-16.6)
[2024-06-29 06:49] LABS: CHLORIDE 113 mmol/L (98-107); POTASSIUM 3.3 mmol/L (3.5-5.1); SODIUM 144 mmol/L (136-145)
[2024-06-29 06:54] LABS: ANION GAP 8 mmol/L (4-13); BLOOD UREA NITROGEN 33.5 mg/dL (7-18); CO2 23 mmol/L (21-32); GLUCOSE,RANDOM 257 mg/dL (74-106); MAGNESIUM 1.8 mg/dL (1.8-2.4)
[2024-06-29 06:57] LABS: CREATININE 0.8 mg/dL (0.55-1.3); PHOSPHOROUS 1.8 mg/dL (2.5-4.9); SGOT/AST 16 U/L (15-37); SGPT/ALT 11 U/L (13-61)
[2024-06-29 06:58] LABS: BILIRUBIN,TOTAL 0.7 mg/dL (0.2-1)
[2024-06-29 06:59] LABS: TOT PROT 4.1 g/dl (6.4-8.2)
[2024-06-29] MEDS ORDERED: HEPARIN NA (PORCINE) 5,000 UNITS/ML 1ML VIAL IVPUSH PRN ×2 (07:30)
[2024-06-29 07:59] LABS: ALBUMIN 1.1 g/dl (3.4-5.0); ALK PHOS 274 U/L (45-117); CALCIUM 6.7 mg/dL (8.5-10.1)
[2024-06-29] MEDS: FENTANYL NS IVPB 500 MCG/100 ML BAG IVPB SCH (08:17)
[2024-06-29] MEDS: MAGNESIUM 1GM/D5W - 1 GM/100 ML IVPB IVPB ONE (09:01)
[2024-06-29] MEDS: POTASSIUM PHOSPHATE 15 MM in SODIUM CHLORIDE 100 ML IVPB ONE (09:57)
[2024-06-29] MEDS ORDERED: INSULIN ASPART SLIDING SCALE (NOVOLOG) 1 VIAL SQ ONE (11:41)
[2024-06-29] MEDS: DEXTROSE 5%-LACTATED RINGERS 1,000 ML IV SCH (17:23)
[2024-06-29] MEDS: POTASSIUM CHLORIDE 10 MEQ in AMINO ACIDS 4.25%/D5W 1,000 ML IV SCH (21:03)
[2024-06-30 06:48] LABS: MEAN PLT VOLUME 11.9 fl (9.4-12.3); PLATELET COUNT 109 x10^3/uL (182-369); RDW 15.9 % (12.4-16.6)
[2024-06-30 06:50] LABS: HEMOGLOBIN 7.7 g/dL (11.2-15.7); MCHC 29.6 g/dl (32.2-35.5); MEAN CELL VOLUME 90.3 fl (79.4-94.8)
[2024-06-30 08:30] LABS: CHLORIDE 115 mmol/L (98-107); POTASSIUM 3.6 mmol/L (3.5-5.1); SODIUM 146 mmol/L (136-145)
[2024-06-30 08:34] LABS: ALBUMIN 1.1 g/dl (3.4-5.0)
[2024-06-30 08:37] LABS: ANION GAP 4 mmol/L (4-13); BLOOD UREA NITROGEN 25.3 mg/dL (7-18); CO2 27 mmol/L (21-32); CREATININE 0.6 mg/dL (0.55-1.3); GLUCOSE,RANDOM 189 mg/dL (74-106); MAGNESIUM 1.8 mg/dL (1.8-2.4); SGOT/AST 12 U/L (15-37); SGPT/ALT 9 U/L (13-61)
[2024-06-30 08:38] LABS: PHOSPHOROUS 2.7 mg/dL (2.5-4.9)
[2024-06-30 08:42] LABS: BILIRUBIN,TOTAL 0.4 mg/dL (0.2-1); TOT PROT 4.2 g/dl (6.4-8.2)
[2024-06-30 08:44] LABS: ALK PHOS 242 U/L (45-117); CALCIUM 6.7 mg/dL (8.5-10.1)
[2024-06-30 09:52] LABS: ARTERIAL BLD GAS O2 SATURATION 94.1 % (95-98); ARTERIAL BLOOD GAS BASE EXCESS -0.4 mmol/L (-2-2); ARTERIAL BLOOD GAS PO2 75.4 mmHg (80-100); ARTERIAL BLOOD GAS pH 7.333 (7.350-7.450)
[2024-06-30 09:54] LABS: VENT MODE A/C; VENT RATE 12
[2024-06-30] MEDS ORDERED: ROCURONIUM BROMIDE 50 MG/5 ML SYRINGE ONE ×2 (14:23→15:51)
[2024-06-30] MEDS ORDERED: MIDAZOLAM HCL 2 MG/2 ML SINGLE DOSE VIAL ONE ×2 (15:44→17:25)
[2024-06-30] MEDS ORDERED: INDOCYANINE GREEN 25 MG/10 ML VIAL IVPUSH ONE (16:15)
[2024-06-30] MEDS: MEROPENEM 1 GM VIAL (RESTRICTED TO ID) IVPB ONE (16:20)
[2024-06-30] MEDS ORDERED: HEPARIN NA (PORCINE) 5,000 UNITS/ML 1ML VIAL IVPUSH PRN ×2 (18:51)
[2024-06-30] MEDS ORDERED: DEXTROSE 50%-WATER - 25 GM/50 ML VIAL IVPUSH PRN (18:51)
[2024-06-30] MEDS ORDERED: PROPOFOL 1,000,000 MCG/100 ML VIAL IVPB SCH (18:51)
[2024-06-30] MEDS: PROPOFOL 1,000,000 MCG/100 ML VIAL IVPB SCH (19:00)
[2024-06-30] MEDS: NOREPINEPHRINE 0.9 % NACL 8 MG/250 ML BAG IVPB SCH (19:00)
[2024-06-30] MEDS: DEXTROSE 5%-LACTATED RINGERS 1,000 ML IV SCH (19:00)
[2024-06-30] MEDS: FENTANYL NS IVPB 500 MCG/100 ML BAG IVPB SCH (19:00)
[2024-06-30 19:33] LABS: HEMATOCRIT 37.9 % (34.1-44.9); HEMOGLOBIN 11.9 g/dL (11.2-15.7); MCHC 31.4 g/dl (32.2-35.5); MEAN CELL VOLUME 91.3 fl (79.4-94.8); MEAN PLT VOLUME 11.6 fl (9.4-12.3); PLATELET COUNT 126 x10^3/uL (182-369); RDW 15.4 % (12.4-16.6)
[2024-06-30 19:44] LABS: INR 0.95 (0.83-1.09); PROTHROMBIN TIME (PATIENT) 10.4 SEC (9.7-13.0)
[2024-06-30] MEDS: VASopressin 40 UNITS/100 ML BAG IV SCH (19:44)
[2024-06-30 19:47] LABS: ACTIVATED PTT 30.4 SECONDS (25.2-36.5)
[2024-06-30 20:00] LABS: POTASSIUM 3.6 mmol/L (3.5-5.1)
[2024-06-30 20:03] LABS: ALBUMIN 1.1 g/dl (3.4-5.0); BLOOD UREA NITROGEN 21.7 mg/dL (7-18); CALCIUM 7.6 mg/dL (8.5-10.1)
[2024-06-30 20:06] LABS: CREATININE 0.7 mg/dL (0.55-1.3)
[2024-06-30 20:08] LABS: BILIRUBIN,TOTAL 0.8 mg/dL (0.2-1); TOT PROT 4.8 g/dl (6.4-8.2)
[2024-06-30] MEDS: VANCOMYCIN HCL IN 5 % DEXTROSE 1,250 MG/250 ML BAG IV SCH (20:32)
[2024-06-30] MEDS ORDERED: CHLORHEXIDINE GLUCONATE 4% CLEANSER FOR DECOLONIZATION TP SCH (22:00)
[2024-06-30] MEDS: MUPIROCIN 2% TOPICAL OINTMENT FOR DECOLONIZATION NS SCH (23:10)
[2024-06-30] MEDS: INSULIN GLARGINE (LANTUS) 100 UNITS/ML UNITS SQ SCH (23:10)
[2024-06-30] MEDS: CHLORHEXIDINE GLUCONATE 4% CLEANSER FOR DECOLONIZATION TP SCH (23:10)
[2024-06-30] MEDS: MICONAZOLE NITRATE 28 GM TUBE TP SCH (23:11)
[2024-06-30] MEDS: INSULIN ASPART SLIDING SCALE (NOVOLOG) 1 VIAL SQ SCH (23:11)
[2024-06-30] MEDS: POTASSIUM CHLORIDE 10 MEQ in AMINO ACIDS 4.25%/D5W 1,000 ML IV SCH (23:16)
[2024-06-30] MEDS: MEROPENEM 1 GM in DEXTROSE 5%-WATER 100 ML IVPB SCH (23:30)
[2024-07-01] MEDS: HEPARIN - 25,000 UNIT in SODIUM CHLORIDE 495 ML IV SCH (00:35)
[2024-07-01 07:03] LABS: HEMATOCRIT 35.6 % (34.1-44.9); MCHC 30.9 g/dl (32.2-35.5); MEAN CELL VOLUME 90.4 fl (79.4-94.8); MEAN PLT VOLUME 11.5 fl (9.4-12.3); PLATELET COUNT 185 x10^3/uL (182-369)
[2024-07-01 07:29] LABS: POTASSIUM 3.8 mmol/L (3.5-5.1)
[2024-07-01 07:40] LABS: BLOOD UREA NITROGEN 22.7 mg/dL (7-18)
[2024-07-01 07:41] LABS: CALCIUM 7.1 mg/dL (8.5-10.1); MAGNESIUM 1.5 mg/dL (1.8-2.4)
[2024-07-01 07:43] LABS: TOT PROT 4.5 g/dl (6.4-8.2)
[2024-07-01 07:44] LABS: CREATININE 0.6 mg/dL (0.55-1.3); PHOSPHOROUS 2.6 mg/dL (2.5-4.9)
[2024-07-01 07:46] LABS: BILIRUBIN,TOTAL 0.5 mg/dL (0.2-1)
[2024-07-01] MEDS: MAGNESIUM SULF 50% (8.12 MEQ/2 ML-1 GM VIAL) IVPB ONE (08:03)
[2024-07-01 08:26] LABS: ARTERIAL BLD GAS O2 SATURATION 95.9 % (95-98); ARTERIAL BLOOD GAS BASE EXCESS -2.7 mmol/L (-2-2); ARTERIAL BLOOD GAS PO2 87.4 mmHg (80-100); ARTERIAL BLOOD GAS pH 7.319 (7.350-7.450)
[2024-07-01 08:27] LABS: VENT MODE A/C; VENT RATE 14
[2024-07-01] MEDS: CASPOFUNGIN ACETATE 50 MG in SODIUM CHLORIDE 250 ML IVPB SCH (09:36)
[2024-07-01] MEDS: PANTOPRAZOLE SODIUM 40 MG VIAL IVPUSH SCH (09:36)
[2024-07-01] MEDS: DEXTROSE 5%-0.45% SALINE 1,000 ML IV SCH (11:19)
[2024-07-01] MEDS: POTASSIUM CHLORIDE 10 MEQ in AMINO ACIDS 4.25%/D5W 1,000 ML IV SCH (14:44)
[2024-07-01] MEDS: HEPARIN NA (PORCINE) 5,000 UNITS/ML 1ML VIAL IVPUSH PRN (17:11)
[2024-07-02] MEDS: HEPARIN NA (PORCINE) 5,000 UNITS/ML 1ML VIAL IVPUSH PRN (02:09)
[2024-07-02 06:51] LABS: HEMATOCRIT 29.6 % (34.1-44.9); HEMOGLOBIN 9.3 g/dL (11.2-15.7); MCHC 31.4 g/dl (32.2-35.5); MEAN CELL VOLUME 90.5 fl (79.4-94.8); MEAN PLT VOLUME 11.7 fl (9.4-12.3); PLATELET COUNT 164 x10^3/uL (182-369); RDW 15.4 % (12.4-16.6)
[2024-07-02 07:00] LABS: CHLORIDE 110 mmol/L (98-107); POTASSIUM 3.5 mmol/L (3.5-5.1); SODIUM 142 mmol/L (136-145)
[2024-07-02 07:11] LABS: BLOOD UREA NITROGEN 22.5 mg/dL (7-18); GLUCOSE,RANDOM 201 mg/dL (74-106); MAGNESIUM 1.7 mg/dL (1.8-2.4)
[2024-07-02 07:15] LABS: ANION GAP 7 mmol/L (4-13); CO2 25 mmol/L (21-32); CREATININE 0.6 mg/dL (0.55-1.3)
[2024-07-02 07:18] LABS: PHOSPHOROUS 1.4 mg/dL (2.5-4.9)
[2024-07-02 07:23] LABS: CALCIUM 6.5 mg/dL (8.5-10.1)
[2024-07-02] MEDS ORDERED: MAGNESIUM 2GM/50ML STERILE WATER IVPB IVPB ONE (07:30)
[2024-07-02 08:03] LABS: ALBUMIN 0.9 g/dl (3.4-5.0)
[2024-07-02] MEDS ORDERED: NAPH,MB-DB/K PH,MBDB POWDER PACKET PO ONE (08:30)
[2024-07-02 08:31] LABS: ARTERIAL BLD GAS O2 SATURATION 93.8 % (95-98); ARTERIAL BLOOD GAS BASE EXCESS -0.4 mmol/L (-2-2); ARTERIAL BLOOD GAS PO2 67.2 mmHg (80-100); ARTERIAL BLOOD GAS pH 7.417 (7.350-7.450); O2 CONTENT 1.35 % vol
[2024-07-02] MEDS: ACETAMINOPHEN 1000 MG/100 ML BAG IVPB PRN (08:31)
[2024-07-02] MEDS: MAGNESIUM 2GM/50ML STERILE WATER IVPB IVPB ONE (08:31)
[2024-07-02 08:32] LABS: VENT MODE A/C; VENT RATE 14
[2024-07-02] MEDS: POTASSIUM PHOSPHATE 30 MM in SODIUM CHLORIDE 500 ML IVPB ONE (09:34)
[2024-07-02] MEDS: MORPHINE SULFATE/0.9% NACL/PF 100 MG/100 ML BAG IVPB SCH (10:43)
[2024-07-03 06:46] LABS: CHLORIDE 108 mmol/L (98-107); POTASSIUM 4.1 mmol/L (3.5-5.1); SODIUM 137 mmol/L (136-145)
[2024-07-03 06:49] LABS: HEMATOCRIT 27.9 % (34.1-44.9); HEMOGLOBIN 8.3 g/dL (11.2-15.7); MCHC 29.7 g/dl (32.2-35.5); MEAN CELL VOLUME 94.3 fl (79.4-94.8); MEAN PLT VOLUME 11.5 fl (9.4-12.3); PLATELET COUNT 194 x10^3/uL (182-369); RDW 15.4 % (12.4-16.6)
[2024-07-03 06:56] LABS: ANION GAP 3 mmol/L (4-13); CO2 25 mmol/L (21-32); GLUCOSE,RANDOM 240 mg/dL (74-106); MAGNESIUM 1.8 mg/dL (1.8-2.4)
[2024-07-03 06:59] LABS: CREATININE 0.6 mg/dL (0.55-1.3); PHOSPHOROUS 2.7 mg/dL (2.5-4.9)
[2024-07-03 07:07] LABS: CALCIUM 6.5 mg/dL (8.5-10.1)
[2024-07-03] MEDS: LACTATED RINGERS SOLUTION 1,000 ML/1,000 ML INFUS.BAG IV STA (08:35)
[2024-07-03 10:42] LABS: ALBUMIN 0.7 g/dl (3.4-5.0)
[2024-07-03] MEDS: POTASSIUM CHLORIDE 10 MEQ in AMINO ACIDS 4.25%/D5W 1,000 ML IV SCH (15:45)
[2024-07-04 07:09] LABS: HEMATOCRIT 28.5 % (34.1-44.9); HEMOGLOBIN 8.6 g/dL (11.2-15.7); MCHC 30.2 g/dl (32.2-35.5); MEAN CELL VOLUME 94.4 fl (79.4-94.8); MEAN PLT VOLUME 10.1 fl (9.4-12.3); PLATELET COUNT 309 x10^3/uL (182-369); RDW 15.4 % (12.4-16.6)
[2024-07-04 07:19] LABS: CHLORIDE 106 mmol/L (98-107); POTASSIUM 4.5 mmol/L (3.5-5.1); SODIUM 136 mmol/L (136-145)
[2024-07-04 07:22] LABS: ANION GAP 8 mmol/L (4-13); CO2 21 mmol/L (21-32); GLUCOSE,RANDOM 135 mg/dL (74-106); MAGNESIUM 1.6 mg/dL (1.8-2.4)
[2024-07-04 07:24] LABS: ALBUMIN 0.7 g/dl (3.4-5.0)
[2024-07-04 07:25] LABS: PHOSPHOROUS 2.8 mg/dL (2.5-4.9); SGOT/AST 8 U/L (15-37); SGPT/ALT < 6 U/L (13-61)
[2024-07-04 07:26] LABS: BILIRUBIN,TOTAL 0.2 mg/dL (0.2-1); TOT PROT 4.6 g/dl (6.4-8.2)
[2024-07-04 07:27] LABS: CREATININE 0.8 mg/dL (0.55-1.3)
[2024-07-04 07:56] LABS: ALK PHOS 197 U/L (45-117)
[2024-07-04 07:58] LABS: CALCIUM 6.9 mg/dL (8.5-10.1)
[2024-07-04] MEDS: MAGNESIUM SULFATE IN WATER 2 GM/50 ML IVPB IVPB ONE (11:28)
[2024-07-04 12:29] LABS: EPI CELLS >36 /uL (0-25.1); HYALINE CASTS 29 /uL (0-3.1); PH,URINE 5.5 (5.0-8.0); URINE APPEARANCE TURBID; URINE BACTERIA 222 /uL (0-1359); URINE BILIRUBIN NEGATIVE (NEGATIVE); URINE COLOR YELLOW; URINE GLUCOSE (UA) NEGATIVE (NEGATIVE); URINE KETONE TRACE (NEGATIVE); URINE LEUK ESTERASE 3+ (NEGATIVE); URINE NITRITE NEGATIVE (NEGATIVE); URINE PROTEIN 2+ (NEGATIVE); URINE UROBILINOGEN 0.2 mg/dL (0.2-1.0); URINE WBC 12826 /uL (0-25.8)
[2024-07-04 12:48] LABS: URINE RBC 335.7 /uL (0-23.9); YEAST PRESENT (NEGATIVE)
[2024-07-04] MEDS: DEXMEDETOMIDINE PREMIX 400 MCG/100 ML BAG IVPB SCH (17:34)
[2024-07-04] MEDS: POTASSIUM CHLORIDE 10 MEQ in AMINO ACIDS 4.25%/D5W 1,000 ML IV SCH (19:00)
[2024-07-04] MEDS: ALBUMIN HUMAN 5% 250 ML IV SOLUTION IV ONE (23:14)
[2024-07-04] MEDS: CALCIUM GLUCONATE 10% - 1,000 MG/10 ML VIAL IVPB ONE (23:19)
[2024-07-04] MEDS: FUROSEMIDE 40 MG/4 ML INJECTABLE VIAL IVPUSH ONE (23:19)
[2024-07-04] MEDS ORDERED: CALCIUM GLUCONATE 10% - 1,000 MG/10 ML VIAL ONE (23:20)
[2024-07-05] MEDS: ALBUMIN HUMAN 5% 250 ML IV SOLUTION IV ONE (00:37)
[2024-07-05] MEDS: INSULIN GLARGINE (LANTUS) 100 UNITS/ML UNITS SQ SCH (06:28)
[2024-07-05 07:27] LABS: CHLORIDE 104 mmol/L (98-107); POTASSIUM 4.5 mmol/L (3.5-5.1); SODIUM 130 mmol/L (136-145)
[2024-07-05 07:30] LABS: ANION GAP 5 mmol/L (4-13); BLOOD UREA NITROGEN 49.3 mg/dL (7-18); CO2 21 mmol/L (21-32); GLUCOSE,RANDOM 108 mg/dL (74-106); MAGNESIUM 1.9 mg/dL (1.8-2.4)
[2024-07-05 07:33] LABS: CREATININE 0.9 mg/dL (0.55-1.3); PHOSPHOROUS 3.3 mg/dL (2.5-4.9); SGOT/AST 12 U/L (15-37)
[2024-07-05 07:34] LABS: TOT PROT 4.9 g/dl (6.4-8.2)
[2024-07-05 07:35] LABS: ALK PHOS 177 U/L (45-117)
[2024-07-05 07:38] LABS: ALBUMIN 1.2 g/dl (3.4-5.0)
[2024-07-05 07:39] LABS: BILIRUBIN,TOTAL 0.3 mg/dL (0.2-1); SGPT/ALT < 6 U/L (13-61)
[2024-07-05 07:42] LABS: HEMATOCRIT 24.9 % (34.1-44.9); HEMOGLOBIN 7.4 g/dL (11.2-15.7); MCHC 29.7 g/dl (32.2-35.5); MEAN CELL VOLUME 94.7 fl (79.4-94.8); MEAN PLT VOLUME 10.8 fl (9.4-12.3); PLATELET COUNT 223 x10^3/uL (182-369); RDW 14.9 % (12.4-16.6)
[2024-07-05] MEDS: NOREPINEPHRINE BITARTRATE 16,000 MCG in SODIUM CHLORIDE 484 ML IV SCH (21:14)
[2024-07-06 06:46] LABS: ABSOLUTE IMMATURE GRANULOCYTES 0.26 x10^3/uL (0.0-0.031); BASOPHILS # 0.06 x10^3/uL (0.01-0.08); EOSINOPHIL % 0.4 % (0.7-5.8); EOSINOPHILS # 0.08 x10^3/uL (0.04-0.36); HEMOGLOBIN 7.4 g/dL (11.2-15.7); MCHC 30.8 g/dl (32.2-35.5); MEAN CELL VOLUME 91.6 fl (79.4-94.8); MEAN PLT VOLUME 10.6 fl (9.4-12.3); MONOCYTE % 4.2 % (4.7-12.5); PLATELET COUNT 226 x10^3/uL (182-369); RDW 14.6 % (12.4-16.6)
[2024-07-06 06:54] LABS: CHLORIDE 102 mmol/L (98-107); POTASSIUM 4.6 mmol/L (3.5-5.1); SODIUM 129 mmol/L (136-145)
[2024-07-06 06:56] LABS: CALCIUM 7.3 mg/dL (8.5-10.1)
[2024-07-06 06:57] LABS: ANION GAP 7 mmol/L (4-13); BLOOD UREA NITROGEN 55.7 mg/dL (7-18); CO2 20 mmol/L (21-32); GLUCOSE,RANDOM 93 mg/dL (74-106); MAGNESIUM 1.7 mg/dL (1.8-2.4)
[2024-07-06 07:00] LABS: PHOSPHOROUS 2.9 mg/dL (2.5-4.9); SGOT/AST 9 U/L (15-37)
[2024-07-06 07:01] LABS: BILIRUBIN,TOTAL 0.3 mg/dL (0.2-1)
[2024-07-06 07:02] LABS: TOT PROT 4.7 g/dl (6.4-8.2)
[2024-07-06 07:03] LABS: ALK PHOS 182 U/L (45-117)
[2024-07-06 07:27] LABS: ALBUMIN 0.9 g/dl (3.4-5.0); SGPT/ALT < 6 U/L (13-61)
[2024-07-06] MEDS: MAGNESIUM 2GM/50ML STERILE WATER IVPB IVPB ONE (09:03)
[2024-07-06 10:14] LABS: ARTERIAL BLD GAS O2 SATURATION 96.6 % (95-98); ARTERIAL BLOOD GAS BASE EXCESS -8.2 mmol/L (-2-2); ARTERIAL BLOOD GAS PO2 95.2 mmHg (80-100); ARTERIAL BLOOD GAS pH 7.292 (7.350-7.450)
[2024-07-06 10:24] LABS: ALLENS TEST POSITIVE
[2024-07-06 10:25] LABS: VENT MODE A/C; VENT RATE 14
[2024-07-06] MEDS: AMINO ACIDS 4.25%/D5W 1,000 ML IV SCH (16:08)
[2024-07-06] MEDS: DEXTROSE 50%-WATER 25 GM/50 ML DISP.SYRIN IVPUSH ONE (17:10)
[2024-07-06] MEDS: METOLAZONE 2.5 MG TABLET (FP) NGT ONE (19:40)
[2024-07-06] MEDS: INSULIN GLARGINE (LANTUS) 100 UNITS/ML UNITS SQ SCH (21:47)
[2024-07-07 07:01] LABS: HEMOGLOBIN 9.8 g/dL (11.2-15.7); MCHC 31.6 g/dl (32.2-35.5); MEAN CELL VOLUME 90.1 fl (79.4-94.8); MEAN PLT VOLUME 10.3 fl (9.4-12.3); PLATELET COUNT 366 x10^3/uL (182-369); RDW 14.5 % (12.4-16.6)
[2024-07-07 07:19] LABS: POTASSIUM 4.9 mmol/L (3.5-5.1)
[2024-07-07 07:22] LABS: CALCIUM 7.8 mg/dL (8.5-10.1); MAGNESIUM 1.9 mg/dL (1.8-2.4)
[2024-07-07 07:23] LABS: BLOOD UREA NITROGEN 62.4 mg/dL (7-18)
[2024-07-07 07:26] LABS: CREATININE 0.9 mg/dL (0.55-1.3); PHOSPHOROUS 3.4 mg/dL (2.5-4.9)
[2024-07-07] MEDS ORDERED: NOREPINEPHRINE 0.9 % NACL 8 MG/250 ML BAG IVPB SCH (15:30)
[2024-07-08 07:04] LABS: HEMATOCRIT 26.5 % (34.1-44.9); HEMOGLOBIN 8.6 g/dL (11.2-15.7); MCHC 32.5 g/dl (32.2-35.5); MEAN CELL VOLUME 87.7 fl (79.4-94.8); MEAN PLT VOLUME 10.3 fl (9.4-12.3); PLATELET COUNT 272 x10^3/uL (182-369); RDW 14.5 % (12.4-16.6)
[2024-07-08 07:24] LABS: CHLORIDE 101 mmol/L (98-107); POTASSIUM 4.8 mmol/L (3.5-5.1); SODIUM 129 mmol/L (136-145)
[2024-07-08 07:27] LABS: ALBUMIN 0.8 g/dl (3.4-5.0); CALCIUM 7.8 mg/dL (8.5-10.1)
[2024-07-08 07:28] LABS: ANION GAP 7 mmol/L (4-13); BLOOD UREA NITROGEN 65.1 mg/dL (7-18); CO2 21 mmol/L (21-32); GLUCOSE,RANDOM 124 mg/dL (74-106); MAGNESIUM 1.9 mg/dL (1.8-2.4)
[2024-07-08 07:32] LABS: CREATININE 0.9 mg/dL (0.55-1.3); PHOSPHOROUS 3.6 mg/dL (2.5-4.9); SGOT/AST 10 U/L (15-37); SGPT/ALT < 6 U/L (13-61)
[2024-07-08 07:33] LABS: BILIRUBIN,TOTAL 0.2 mg/dL (0.2-1); TOT PROT 4.4 g/dl (6.4-8.2)
[2024-07-08 07:34] LABS: ALK PHOS 192 U/L (45-117)
[2024-07-08] MEDS: ZINC OXIDE 20% TOPICAL OINTMENT 30 GM TUBE TP SCH (10:23)
[2024-07-08] MEDS: ALBUMIN HUMAN 25% 100 ML VIAL IV SCH (11:45)
[2024-07-08] MEDS: FUROSEMIDE 40 MG/4 ML INJECTABLE VIAL IVPUSH SCH (11:46)
[2024-07-09 07:57] LABS: HEMOGLOBIN 7.1 g/dL (11.2-15.7); MCHC 32.3 g/dl (32.2-35.5); MEAN CELL VOLUME 86.6 fl (79.4-94.8); MEAN PLT VOLUME 10.2 fl (9.4-12.3); PLATELET COUNT 260 x10^3/uL (182-369); RDW 14.4 % (12.4-16.6)
[2024-07-09 07:59] LABS: CHLORIDE 103 mmol/L (98-107); POTASSIUM 4.3 mmol/L (3.5-5.1); SODIUM 133 mmol/L (136-145)
[2024-07-09 08:04] LABS: ANION GAP 8 mmol/L (4-13); CO2 22 mmol/L (21-32)
[2024-07-09 08:05] LABS: BLOOD UREA NITROGEN 61.4 mg/dL (7-18); GLUCOSE,RANDOM 93 mg/dL (74-106)
[2024-07-09 08:08] LABS: CREATININE 0.8 mg/dL (0.55-1.3); SGOT/AST 9 U/L (15-37); SGPT/ALT < 6 U/L (13-61)
[2024-07-09 08:09] LABS: BILIRUBIN,TOTAL 0.4 mg/dL (0.2-1); TOT PROT 4.7 g/dl (6.4-8.2)
[2024-07-09 08:10] LABS: ALBUMIN 1.6 g/dl (3.4-5.0)
[2024-07-09 08:14] LABS: ALK PHOS 266 U/L (45-117)
[2024-07-10 06:50] LABS: CHLORIDE 107 mmol/L (98-107); POTASSIUM 4.4 mmol/L (3.5-5.1); SODIUM 138 mmol/L (136-145)
[2024-07-10 06:52] LABS: ALBUMIN 1.5 g/dl (3.4-5.0); ANION GAP 8 mmol/L (4-13); BLOOD UREA NITROGEN 48.8 mg/dL (7-18); CALCIUM 8.2 mg/dL (8.5-10.1); CO2 23 mmol/L (21-32)
[2024-07-10 06:53] LABS: GLUCOSE,RANDOM 154 mg/dL (74-106)
[2024-07-10 06:55] LABS: SGOT/AST 14 U/L (15-37); SGPT/ALT < 6 U/L (13-61)
[2024-07-10 06:56] LABS: CREATININE 0.8 mg/dL (0.55-1.3)
[2024-07-10 06:57] LABS: BILIRUBIN,TOTAL 0.4 mg/dL (0.2-1); TOT PROT 5.4 g/dl (6.4-8.2)
[2024-07-10 07:51] LABS: ALK PHOS 407 U/L (45-117)
[2024-07-10 08:16] LABS: HEMATOCRIT 25.6 % (34.1-44.9); HEMOGLOBIN 8.3 g/dL (11.2-15.7); MCHC 32.4 g/dl (32.2-35.5); MEAN CELL VOLUME 87.7 fl (79.4-94.8); MEAN PLT VOLUME 9.9 fl (9.4-12.3); PLATELET COUNT 322 x10^3/uL (182-369); RDW 14.6 % (12.4-16.6)
[2024-07-10] MEDS: FLUCONAZOLE 40 MG/ML SUSPENSION PEG SCH (15:13)
[2024-07-11 06:51] LABS: CHLORIDE 110 mmol/L (98-107); POTASSIUM 4.1 mmol/L (3.5-5.1); SODIUM 141 mmol/L (136-145)
[2024-07-11 06:53] LABS: ALBUMIN 1.3 g/dl (3.4-5.0); ANION GAP 6 mmol/L (4-13); CALCIUM 7.8 mg/dL (8.5-10.1); CO2 25 mmol/L (21-32)
[2024-07-11 06:54] LABS: BLOOD UREA NITROGEN 39.9 mg/dL (7-18); GLUCOSE,RANDOM 92 mg/dL (74-106)
[2024-07-11 06:56] LABS: SGPT/ALT < 6 U/L (13-61)
[2024-07-11 06:57] LABS: CREATININE 0.7 mg/dL (0.55-1.3); SGOT/AST 12 U/L (15-37)
[2024-07-11 06:58] LABS: BILIRUBIN,TOTAL 0.3 mg/dL (0.2-1); TOT PROT 4.7 g/dl (6.4-8.2)
[2024-07-11 06:59] LABS: ALK PHOS 397 U/L (45-117)
[2024-07-11 07:02] LABS: HEMATOCRIT 24.1 % (34.1-44.9); HEMOGLOBIN 7.7 g/dL (11.2-15.7); MEAN CELL VOLUME 88.6 fl (79.4-94.8); MEAN PLT VOLUME 9.5 fl (9.4-12.3); PLATELET COUNT 312 x10^3/uL (182-369); RDW 14.7 % (12.4-16.6)
[2024-07-12 07:00] LABS: ABSOLUTE IMMATURE GRANULOCYTES 0.41 x10^3/uL (0.0-0.031); BASOPHILS # 0.09 x10^3/uL (0.01-0.08); EOSINOPHIL % 0.8 % (0.7-5.8); EOSINOPHILS # 0.09 x10^3/uL (0.04-0.36); HEMATOCRIT 25.4 % (34.1-44.9); HEMOGLOBIN 8.1 g/dL (11.2-15.7); MCHC 31.9 g/dl (32.2-35.5); MEAN CELL VOLUME 89.4 fl (79.4-94.8); MEAN PLT VOLUME 9.3 fl (9.4-12.3); MONOCYTE # 0.53 x10^3/uL (0.24-0.86); MONOCYTE % 4.5 % (4.7-12.5); PLATELET COUNT 282 x10^3/uL (182-369); RDW 14.6 % (12.4-16.6)
[2024-07-12 07:07] LABS: ALBUMIN 1.2 g/dl (3.4-5.0); CALCIUM 7.8 mg/dL (8.5-10.1)
[2024-07-12 07:08] LABS: BLOOD UREA NITROGEN 33.3 mg/dL (7-18); MAGNESIUM 1.7 mg/dL (1.8-2.4)
[2024-07-12 07:11] LABS: CREATININE 0.7 mg/dL (0.55-1.3); PHOSPHOROUS 2.2 mg/dL (2.5-4.9)
[2024-07-12 07:12] LABS: BILIRUBIN,TOTAL 0.3 mg/dL (0.2-1); TOT PROT 4.8 g/dl (6.4-8.2)
[2024-07-12] MEDS: MAGNESIUM 1GM/D5W - 1 GM/100 ML IVPB IVPB ONE (10:35)
[2024-07-12] MEDS ORDERED: DEXTROSE 50%-WATER 25 GM/50 ML DISP.SYRIN ONE (12:54)
[2024-07-12] MEDS: DEXTROSE 50%-WATER 25 GM/50 ML DISP.SYRIN IVPUSH ONE (14:21)
[2024-07-12] MEDS: DEXMEDETOMIDINE PREMIX 400 MCG/100 ML BAG IVPB SCH (19:13)
[2024-07-13 06:35] LABS: ARTERIAL BLD GAS O2 SATURATION 99.7 % (95-98); ARTERIAL BLOOD GAS BASE EXCESS 0.9 mmol/L (-2-2); ARTERIAL BLOOD GAS PO2 249.7 mmHg (80-100); ARTERIAL BLOOD GAS pH 7.508 (7.350-7.450)
[2024-07-13 06:47] LABS: ALLENS TEST POSITIVE; VENT MODE PSV
[2024-07-13 07:10] LABS: ABSOLUTE IMMATURE GRANULOCYTES 0.26 x10^3/uL (0.0-0.031); BASOPHILS # 0.05 x10^3/uL (0.01-0.08); EOSINOPHIL % 1.6 % (0.7-5.8); EOSINOPHILS # 0.17 x10^3/uL (0.04-0.36); HEMATOCRIT 24.1 % (34.1-44.9); HEMOGLOBIN 7.4 g/dL (11.2-15.7); MCHC 30.7 g/dl (32.2-35.5); MEAN CELL VOLUME 89.6 fl (79.4-94.8); MEAN PLT VOLUME 9.7 fl (9.4-12.3); MONOCYTE # 0.44 x10^3/uL (0.24-0.86); MONOCYTE % 4.2 % (4.7-12.5); PLATELET COUNT 259 x10^3/uL (182-369); RDW 15.2 % (12.4-16.6)
[2024-07-13 07:13] LABS: CHLORIDE 109 mmol/L (98-107); SODIUM 142 mmol/L (136-145)
[2024-07-13 07:23] LABS: ALBUMIN 1.1 g/dl (3.4-5.0); ANION GAP 6 mmol/L (4-13); BLOOD UREA NITROGEN 27.9 mg/dL (7-18); CALCIUM 7.6 mg/dL (8.5-10.1); CO2 27 mmol/L (21-32); GLUCOSE,RANDOM 78 mg/dL (74-106); MAGNESIUM 1.9 mg/dL (1.8-2.4)
[2024-07-13 07:25] LABS: CREATININE 0.6 mg/dL (0.55-1.3); SGOT/AST 17 U/L (15-37)
[2024-07-13 07:27] LABS: BILIRUBIN,TOTAL 0.2 mg/dL (0.2-1); PHOSPHOROUS 2.2 mg/dL (2.5-4.9); TOT PROT 4.7 g/dl (6.4-8.2)
[2024-07-13 07:28] LABS: ALK PHOS 383 U/L (45-117); SGPT/ALT < 6 U/L (13-61)
[2024-07-13] MEDS ORDERED: COLLAGENASE CLOSTRIDIUM HIST. 30 GRAMS TUBE TP SCH (10:45)
[2024-07-13] MEDS: DEXTROSE 50%-WATER 25 GM/50 ML DISP.SYRIN IVPUSH ONE (13:25)
[2024-07-14 06:49] LABS: CHLORIDE 110 mmol/L (98-107); POTASSIUM 4.6 mmol/L (3.5-5.1); SODIUM 142 mmol/L (136-145)
[2024-07-14 06:55] LABS: CALCIUM 7.5 mg/dL (8.5-10.1)
[2024-07-14 06:56] LABS: ALBUMIN 1.1 g/dl (3.4-5.0); ANION GAP 6 mmol/L (4-13); BLOOD UREA NITROGEN 24.9 mg/dL (7-18); CO2 27 mmol/L (21-32); GLUCOSE,RANDOM 124 mg/dL (74-106); MAGNESIUM 1.8 mg/dL (1.8-2.4); SGOT/AST 18 U/L (15-37)
[2024-07-14 06:58] LABS: BILIRUBIN,TOTAL 0.2 mg/dL (0.2-1); TOT PROT 4.9 g/dl (6.4-8.2)
[2024-07-14 06:59] LABS: ALK PHOS 377 U/L (45-117); CREATININE 0.5 mg/dL (0.55-1.3); PHOSPHOROUS 2.5 mg/dL (2.5-4.9)
[2024-07-14 07:01] LABS: ABSOLUTE IMMATURE GRANULOCYTES 0.37 x10^3/uL (0.0-0.031); BASOPHILS # 0.07 x10^3/uL (0.01-0.08); EOSINOPHIL % 2.1 % (0.7-5.8); EOSINOPHILS # 0.24 x10^3/uL (0.04-0.36); HEMATOCRIT 25.6 % (34.1-44.9); HEMOGLOBIN 7.8 g/dL (11.2-15.7); MCHC 30.5 g/dl (32.2-35.5); MEAN CELL VOLUME 90.5 fl (79.4-94.8); MEAN PLT VOLUME 10.6 fl (9.4-12.3); MONOCYTE # 0.36 x10^3/uL (0.24-0.86); MONOCYTE % 3.1 % (4.7-12.5); PLATELET COUNT 235 x10^3/uL (182-369); RDW 14.6 % (12.4-16.6)
[2024-07-14 07:48] LABS: SGPT/ALT < 6 U/L (13-61)
[2024-07-14] MEDS ORDERED: COLLAGENASE CLOSTRIDIUM HIST. 30 GRAMS TUBE TP SCH (10:00)
[2024-07-14 19:19] LABS: EPI CELLS >36 /uL (0-25.1); HYALINE CASTS 5 /uL (0-3.1); PH,URINE 6.5 (5.0-8.0); URINE APPEARANCE TURBID; URINE BACTERIA 197 /uL (0-1359); URINE BILIRUBIN NEGATIVE (NEGATIVE); URINE COLOR YELLOW; URINE GLUCOSE (UA) NEGATIVE (NEGATIVE); URINE KETONE TRACE (NEGATIVE); URINE LEUK ESTERASE 2+ (NEGATIVE); URINE NITRITE NEGATIVE (NEGATIVE); URINE PROTEIN 3+ (NEGATIVE); URINE UROBILINOGEN 0.2 mg/dL (0.2-1.0)
[2024-07-14 21:32] LABS: URINE RBC 753.6 /uL (0-23.9)
[2024-07-15 06:31] LABS: HEMATOCRIT 28.6 % (34.1-44.9); HEMOGLOBIN 8.7 g/dL (11.2-15.7); MCHC 30.4 g/dl (32.2-35.5); MEAN CELL VOLUME 90.5 fl (79.4-94.8); MEAN PLT VOLUME 9.5 fl (9.4-12.3); PLATELET COUNT 426 x10^3/uL (182-369); RDW 14.7 % (12.4-16.6)
[2024-07-15 06:32] LABS: POTASSIUM 4.7 mmol/L (3.5-5.1)
[2024-07-15 06:41] LABS: ALBUMIN 1.2 g/dl (3.4-5.0); BILIRUBIN,TOTAL 0.2 mg/dL (0.2-1); CALCIUM 8.4 mg/dL (8.5-10.1); TOT PROT 5.4 g/dl (6.4-8.2)
[2024-07-15 06:43] LABS: CREATININE 0.5 mg/dL (0.55-1.3)
[2024-07-15] MEDS ORDERED: ALBUMIN HUMAN 25% 12.5 GM/50 ML VIAL IV SCH (10:30)
[2024-07-15] MEDS: ALBUMIN HUMAN 25% 100 ML VIAL IV ONE (11:36)
[2024-07-15] MEDS: FUROSEMIDE 40 MG/4 ML INJECTABLE VIAL IVPUSH ONE (12:15)
[2024-07-16 08:03] LABS: HEMATOCRIT 24.6 % (34.1-44.9); HEMOGLOBIN 7.4 g/dL (11.2-15.7); MCHC 30.1 g/dl (32.2-35.5); MEAN CELL VOLUME 89.8 fl (79.4-94.8); MEAN PLT VOLUME 9.9 fl (9.4-12.3); PLATELET COUNT 286 x10^3/uL (182-369); RDW 14.6 % (12.4-16.6)
[2024-07-16 08:21] LABS: CHLORIDE 107 mmol/L (98-107); POTASSIUM 4.1 mmol/L (3.5-5.1); SODIUM 141 mmol/L (136-145)
[2024-07-16 08:24] LABS: CALCIUM 7.7 mg/dL (8.5-10.1)
[2024-07-16 08:25] LABS: ALBUMIN 1.5 g/dl (3.4-5.0); ANION GAP 6 mmol/L (4-13); BLOOD UREA NITROGEN 21.8 mg/dL (7-18); CO2 27 mmol/L (21-32); GLUCOSE,RANDOM 181 mg/dL (74-106); MAGNESIUM 1.8 mg/dL (1.8-2.4)
[2024-07-16 08:28] LABS: CREATININE 0.5 mg/dL (0.55-1.3); PHOSPHOROUS 2.5 mg/dL (2.5-4.9); SGOT/AST 11 U/L (15-37)
[2024-07-16 08:30] LABS: BILIRUBIN,TOTAL 0.4 mg/dL (0.2-1); TOT PROT 4.9 g/dl (6.4-8.2)
[2024-07-16 08:33] LABS: ALK PHOS 254 U/L (45-117); SGPT/ALT < 6 U/L (13-61)
[2024-07-16] MEDS ORDERED: SODIUM CHLORIDE 500 ML IV STA (10:04)
[2024-07-16] MEDS ORDERED: MIDODRINE HCL 5 MG TABLET PO ONE (10:40)
[2024-07-16] MEDS: SODIUM CHLORIDE 1,000 ML IV STA (10:42)
[2024-07-16] MEDS: MIDODRINE HCL 5 MG TABLET PO SCH (10:47)
[2024-07-16] MEDS: ACETAMINOPHEN 1000 MG/100 ML BAG IVPB PRN (17:53)
[2024-07-17 15:43] LABS: HEMATOCRIT 26.3 % (34.1-44.9); HEMOGLOBIN 8.1 g/dL (11.2-15.7); MCHC 30.8 g/dl (32.2-35.5); MEAN PLT VOLUME 9.3 fl (9.4-12.3); PLATELET COUNT 379 x10^3/uL (182-369); RDW 14.8 % (12.4-16.6)
[2024-07-17 16:12] LABS: POTASSIUM 4.4 mmol/L (3.5-5.1)
[2024-07-17 16:13] LABS: CALCIUM 7.9 mg/dL (8.5-10.1)
[2024-07-17 16:14] LABS: ALBUMIN 1.3 g/dl (3.4-5.0); BLOOD UREA NITROGEN 23.6 mg/dL (7-18)
[2024-07-17 16:16] LABS: CREATININE 0.5 mg/dL (0.55-1.3)
[2024-07-17 16:19] LABS: BILIRUBIN,TOTAL 0.2 mg/dL (0.2-1); TOT PROT 4.9 g/dl (6.4-8.2)
[2024-07-18 07:42] LABS: POTASSIUM 4.8 mmol/L (3.5-5.1)
[2024-07-18 08:09] LABS: CALCIUM 7.8 mg/dL (8.5-10.1)
[2024-07-18 08:10] LABS: ALBUMIN 1.2 g/dl (3.4-5.0); BLOOD UREA NITROGEN 25.4 mg/dL (7-18)
[2024-07-18 08:13] LABS: CREATININE 0.5 mg/dL (0.55-1.3)
[2024-07-18 08:14] LABS: BILIRUBIN,TOTAL 0.2 mg/dL (0.2-1)
[2024-07-18 08:17] LABS: TOT PROT 4.9 g/dl (6.4-8.2)
[2024-07-18] MEDS: COLLAGENASE CLOSTRIDIUM HIST. 30 GRAMS TUBE TP SCH (16:41)
[2024-07-19 06:52] LABS: ABSOLUTE IMMATURE GRANULOCYTES 0.13 x10^3/uL (0.0-0.031); BASOPHILS # 0.04 x10^3/uL (0.01-0.08); EOSINOPHILS # 0.11 x10^3/uL (0.04-0.36); HEMATOCRIT 24.8 % (34.1-44.9); HEMOGLOBIN 7.4 g/dL (11.2-15.7); MCHC 29.8 g/dl (32.2-35.5); MEAN CELL VOLUME 92.2 fl (79.4-94.8); MEAN PLT VOLUME 9.6 fl (9.4-12.3); MONOCYTE # 0.37 x10^3/uL (0.24-0.86); MONOCYTE % 3.2 % (4.7-12.5); PLATELET COUNT 364 x10^3/uL (182-369); RDW 14.8 % (12.4-16.6)
[2024-07-19 07:09] LABS: POTASSIUM 4.9 mmol/L (3.5-5.1)
[2024-07-19 07:11] LABS: CALCIUM 7.9 mg/dL (8.5-10.1)
[2024-07-19 07:12] LABS: ALBUMIN 1.2 g/dl (3.4-5.0); BLOOD UREA NITROGEN 22.9 mg/dL (7-18); MAGNESIUM 1.9 mg/dL (1.8-2.4)
[2024-07-19 07:15] LABS: CREATININE 0.5 mg/dL (0.55-1.3); PHOSPHOROUS 2.3 mg/dL (2.5-4.9)
[2024-07-19 07:16] LABS: BILIRUBIN,TOTAL 0.4 mg/dL (0.2-1)
[2024-07-20 07:08] LABS: ABSOLUTE IMMATURE GRANULOCYTES 0.14 x10^3/uL (0.0-0.031); BASOPHILS # 0.06 x10^3/uL (0.01-0.08); EOSINOPHIL % 1.9 % (0.7-5.8); EOSINOPHILS # 0.21 x10^3/uL (0.04-0.36); HEMATOCRIT 24.6 % (34.1-44.9); HEMOGLOBIN 7.5 g/dL (11.2-15.7); MCHC 30.5 g/dl (32.2-35.5); MEAN CELL VOLUME 92.1 fl (79.4-94.8); MEAN PLT VOLUME 9.2 fl (9.4-12.3); MONOCYTE # 0.37 x10^3/uL (0.24-0.86); MONOCYTE % 3.4 % (4.7-12.5); PLATELET COUNT 453 x10^3/uL (182-369)
[2024-07-20 07:19] LABS: POTASSIUM 5.2 mmol/L (3.5-5.1)
[2024-07-20 07:28] LABS: ALBUMIN 1.2 g/dl (3.4-5.0); BLOOD UREA NITROGEN 23.6 mg/dL (7-18); CALCIUM 7.9 mg/dL (8.5-10.1); MAGNESIUM 1.9 mg/dL (1.8-2.4)
[2024-07-20 07:31] LABS: CREATININE 0.5 mg/dL (0.55-1.3); PHOSPHOROUS 2.7 mg/dL (2.5-4.9)
[2024-07-20 07:33] LABS: BILIRUBIN,TOTAL 0.2 mg/dL (0.2-1)
[2024-07-20] MEDS: MORPHINE SULFATE/0.9% NACL/PF 100 MG/100 ML BAG IVPB SCH (12:00)
[2024-07-20] MEDS: METOPROLOL TARTRATE 5 MG/5 ML VIAL IVPUSH ONE (18:35)
[2024-07-20] MEDS: SODIUM ZIRCONIUM CYCLOSILICATE (LOKELMA) 5 GM PACKET PO SCH (18:35)
[2024-07-21] MEDS ORDERED: LORazepam 2 MG/ML SDV VIAL IVPUSH PRN ×2 (09:22→20:25)
[2024-07-21 19:44] VITALS: RESP 22
[2024-07-21] MEDS: MORPHINE SULFATE/0.9% NACL/PF 100 MG/100 ML BAG IVPB SCH (20:42)
[2024-07-22 06:53] VITALS: BP 116/64; PULSE 131; TEMP 97.9
== END 2024-07-22 11:33 | disposition expired | DRG 853 ==
LOC: JER 14:11 → JERBED 18:38 → JICU 21:14 → J6S 07-17 16:42 → JICU 07-17 16:45 → J8W 07-21 20:11
PROVIDERS: ADMIT Internal Medicine Pulmonary Disease; ATTEND Nurse Practitioner Family
PROC: 05HM33Z Insertion of Infusion Device into Right Internal Jugular Vein, Percutaneous Approach (ICD-10-PCS; 2024-06-23)
PROC: 03HY32Z Insertion of Monitoring Device into Upper Artery, Percutaneous Approach (ICD-10-PCS; 2024-06-24)
PROC: 4A133B1 Monitoring of Arterial Pressure, Peripheral, Percutaneous Approach (ICD-10-PCS; 2024-06-24)
PROC: 4A133J1 Monitoring of Arterial Pulse, Peripheral, Percutaneous Approach (ICD-10-PCS; 2024-06-24)
PROC: 0DTA4ZZ Resection of Jejunum, Percutaneous Endoscopic Approach (ICD-10-PCS; 2024-06-26)
PROC: 04HY32Z Insertion of Monitoring Device into Lower Artery, Percutaneous Approach (ICD-10-PCS; 2024-06-26)
PROC: 4A133B1 Monitoring of Arterial Pressure, Peripheral, Percutaneous Approach (ICD-10-PCS; 2024-06-26)
PROC: 4A133J1 Monitoring of Arterial Pulse, Peripheral, Percutaneous Approach (ICD-10-PCS; 2024-06-26)
PROC: 5A1955Z Respiratory Ventilation, Greater than 96 Consecutive Hours (ICD-10-PCS; 2024-06-26)
PROC: 0BH17EZ Insertion of Endotracheal Airway into Trachea, Via Natural or Artificial Opening (ICD-10-PCS; 2024-06-26)
PROC: 0DT84ZZ Resection of Small Intestine, Percutaneous Endoscopic Approach (ICD-10-PCS; principal; 2024-06-26 13:00)
PROC: 0DJD4ZZ Inspection of Lower Intestinal Tract, Percutaneous Endoscopic Approach (ICD-10-PCS; 2024-06-30)
PROC: 02HV33Z Insertion of Infusion Device into Superior Vena Cava, Percutaneous Approach (ICD-10-PCS; 2024-07-01)
PROC: B548ZZA Ultrasonography of Superior Vena Cava, Guidance (ICD-10-PCS; 2024-07-01)
DX: A41.9 Sepsis, unspecified organism (principal); E11.10 Type 2 diabetes mellitus with ketoacidosis without coma; L89.153 Pressure ulcer of sacral region, stage 3; G93.41 Metabolic encephalopathy; R65.21 Severe sepsis with septic shock; N17.0 Acute kidney failure with tubular necrosis; I60.9 Nontraumatic subarachnoid hemorrhage, unspecified; E43 Unspecified severe protein-calorie malnutrition; J96.01 Acute respiratory failure with hypoxia; N39.0 Urinary tract infection, site not specified; N13.30 Unspecified hydronephrosis; I24.89 Other forms of acute ischemic heart disease; L97.528 Non-pressure chronic ulcer of other part of left foot with other specified severity; K55.8 Other vascular disorders of intestine; D62 Acute posthemorrhagic anemia; E87.0 Hyperosmolality and hypernatremia; E87.1 Hypo-osmolality and hyponatremia; J90 Pleural effusion, not elsewhere classified; I10 Essential (primary) hypertension; R31.9 Hematuria, unspecified; K63.89 Other specified diseases of intestine; E11.621 Type 2 diabetes mellitus with foot ulcer; L97.519 Non-pressure chronic ulcer of other part of right foot with unspecified severity; D69.6 Thrombocytopenia, unspecified; E83.42 Hypomagnesemia; Z68.36 Body mass index [BMI] 36.0-36.9, adult; E11.649 Type 2 diabetes mellitus with hypoglycemia without coma
CPT/HCPCS: 0241U-QW; 31500; 36415; 36430; 36600; 70450-TC; 71045-TC-FY; 71250-TC; 73630-TC-LT; 73630-TC-RT-FY; 74174-TC; 74176-TC; 76775-TC; 80048; 80053; 81003; 82010; 82040; 82272; 82436; 82550; 82553; 82570; 82803; 82962; 83036; 83605; 83735; 83930; 84100; 84133; 84156; 84300; 84484; 85025; 85027; 85610; 85651; 85730; 86140; 86850; 86900; 86901; 86922; 87040; 87070; 87077; 87081; 87086; 87106; 87186; 87205; 88307-TC; 93005; 93010; 93306-TC; 94002; 99285-25; G0480; J0637; J3490; P9038; P9058